=== PATIENT | male | born 1990 | race Caucasian/White ===

== ENCOUNTER 2020-10-09 21:15 | Emergency (ER) | payer MEDICAID, SELFPAY ==
[2020-10-09 21:16] VITALS: BP 123/68; PULSE 101; RESP 18; TEMP 37.1; O2SAT 100; BMI 25.0
--- NOTE | 2020-10-09 21:28 | ED.VIS.GEN ---
History of Present Illness Chief Complaint: Abscess Narrative: This patient is a 30-year-old male who presents with redness pain and swelling of his forehead. He noticed it this morning. No history of prior similar symptoms. No fevers nausea or vomiting. He is not diabetic. Past Medical History - Allergies and Home Meds Allergies/Adverse Reactions: Allergies No Known Allergies Allergy (Verified 10/09/20 21:18) Primary Care Physician: NOT,DEFINED [Primary Care Provider] - Past Medical History: - - Opiate dependence and abuse, on Suboxone Review of Systems All systems negative except as indicated General: Denies: Fever Eyes: Denies: Visual changes - bilaterally ENT: Denies: Bilateral ear pain Cardiovascular: Denies: Chest pain Gastrointestinal: Denies: Vomiting, Diarrhea Skin: Reports: Rash Physical Exam Vital Signs/Narrative: Vital Signs Temp Pulse Resp BP Pulse Ox 10/09/20 21:16 98.8 F 101 H 18 123/68 H 100 Inital Vital Signs reviewed: Yes General: Well nourished Head: - - Patient has a facial cellulitis in the center of his forehead with soft tissue swelling induration erythema no focal abscess no fluctuance Eyes: EOMI ENT: Moist mucous membranes Neck: Supple Cardiovascular: Regular rate Respiratory: No distress Skin: Normal color, - - Facial cellulitis as above Neurological: Alert Psychological: Normal affect Diagnostic/Tx/Re-eval - Medical Decision Making I did perform a [id number] soft tissue ultrasound of the area of cellulitis there is no focal fluid collection or abscess. Patient was given doxycycline, he was given first dose here and a prescription for the same. He understands return for new or worsening symptoms. Patient discharged. ED Disposition - Plan for ED Patient: Disposition: Home or Assisted Living Diagnosis: Facial cellulitis Instructions: ED Cellulitis, Facial Prescriptions: Doxycycline 100 mg PO BID #20 cap Prescription Printed Referrals: NOT,DEFINED [Primary Care Provider] -
[2020-10-09 21:30] VITALS: BP 123/68; PULSE 100; RESP 15; O2SAT 100
[2020-10-09] MEDS: Doxycycline 100 MG CAPSULE PO (21:41)
== END 2020-10-09 21:47 | disposition home or self-care (01) ==
LOC: ED 21:42
PROVIDERS: Emergency Provider Emergency Medicine
DX: L03.211 Cellulitis of face (principal)
CPT/HCPCS: 99283

== ENCOUNTER 2021-09-21 05:59 | Inpatient (IN) | payer MEDICAID, SELFPAY ==
[2021-09-21] VITALS (10 sets, daily range): BP systolic 103–127; BP diastolic 62–76; PULSE 110–129; RESP 15–18; TEMP 36.6–37.9; O2SAT 94–100; BMI 22.8; BMI 22.6
--- NOTE | 2021-09-21 06:26 | EKG12_ITS ---
Test Reason : CP Blood Pressure : / mmHG Vent. Rate : 116 BPM Atrial Rate : 116 BPM P-R Int : 124 ms QRS Dur : 074 ms QT Int : 318 ms P-R-T Axes : 064 061 048 degrees QTc Int : 442 ms Sinus tachycardia Otherwise normal ECG Confirmed by SHELLEY MIRZA, ZACARIAS ([id number]), cooking appliance repair technician CAREY BOONE ([id number]) on 09/25/2021 9:28:54 AM Referred By: NEGAR Confirmed By:NAYELI ROSA MD
--- NOTE | 2021-09-21 06:28 | EX.ED.DYSGE1 ---
HPI <Dr. Hector Harris MD - Last Filed: 09/21/21 07:49> History of Present Illness Chief Complaint: General Illness Narrative Narrative: Patient presents saying that between 3 and 4 weeks ago he was diagnosed with Covid, and since around that time he has had tender swollen areas on both forearms. At least one of them, the left one, was a methamphetamine injection site. He cannot remember about the others. Several days he accidentally bumped one of them on the right forearm, and it became worse and spread to the elbow area where now he has other nodules that are swollen, and his whole proximal forearm is swollen and extremely tender. He is having chills, unknown if he has fevers or not. He feels malaise. In the last several days, he feels like all of the tender swollen areas on both of his forearms have worsened, and he has developed pleuritic left lower chest pain and some mild shortness of breath, his cough is unchanged and has persisted since Covid. He denies any leg pain or swelling. No history of DVT or PE that he knows of. PFSH <Dr. Hector Harris MD - Last Filed: 09/21/21 07:49> [facility] Medical History (Updated 09/21/21 @ 10:[address] Carlos Chahal DO) COVID-19 Drug abuse and dependence Hepatitis C Home Medications NK 09/21/21 [History Last Taken Unknown] Allergy/AdvReac Type Severity Reaction Status Date / Time No Known Allergies Allergy Verified 10/09/20 21:18 Social History Smoking Status: Current every day smoker tobacco type: cigarettes ROS <Dr. Hector Harris MD - Last Filed: 09/21/21 07:49> ROS ED Constitutional Constitutional ED: Reports body ache(s), chills, fever(s) and subjective Eyes Eyes: Denies change in vision or diplopia ENT ENT ED: Denies rhinorrhea or sore throat Cardiovascular Cardiovascular: Reports as per HPI and chest pain; Denies palpitations Respiratory/Chest Respiratory/Chest: Reports cough and dyspnea Gastrointestinal Gastrointestinal: Denies abdominal pain, diarrhea, nausea or vomiting Genitourinary Genitourinary ED: Denies dysuria or hematuria Musculoskeletal Musculoskeletal: Reports extremity pain; Denies back pain or neck pain Integumentary Reports abscess; Denies rash Neurologic Neurologic: Denies headache(s), paresthesias or weakness Psychiatric Psychiatric: Denies anxiety or suicidal thoughts EXAM <Dr. Hector Harris MD - Last Filed: 09/21/21 07:49> Physical Exam Const Vital Signs: 09/21/21 06:00 09/21/21 06:07 09/21/21 07:06 Temperature 99.4 F H 99.4 F H 98.7 F Temperature Source Temporal Temporal Temporal Pulse Rate 125 H 119 H 115 H Respiratory Rate 17 18 15 Blood Pressure 127/75 H 127/75 H 118/76 Blood Pressure Mean 92 92 90 Pulse Ox 99 99 95 Oxygen Delivery Method Room Air Room Air Room Air 09/21/21 07:11 09/21/21 08:01 Temperature 98.7 F 98 F Temperature Source Temporal Temporal Pulse Rate 111 H 115 H Respiratory Rate 17 16 Blood Pressure 111/76 118/71 Blood Pressure Mean 87 86 Pulse Ox 98 98 Oxygen Delivery Method Room Air Room Air Positive well nourished and well developed General Appearance ED: well developed and NAD HEENT Reports moist mucous membranes normocephalic and atraumatic Eyes PERRL and EOMs intact bilaterally Neck full ROM and supple Chest Wall inspection of chest normal and palpation of chest normal Chest Narrative: No axillary lymphadenopathy Resp normal respiratory effort and clear to auscultation bilaterally Cardio regular rate, regular rhythm and no murmurs Rate: tachycardic GI non-tender and non-distended Auscultation: normoactive bowel sounds Palpation: soft Back/Spine no CVA tenderness General Back: other FROM Extremity normal to inspection Extremity Narrative: Patient has a single pointing abscess on his volar left proximal forearm just distal to the antecubital fossa without any apparent spread. The proximal right forearm is extremely swollen, and on the ulnar aspect, there are 3 nodular areas that appear consistent with abscesses with surrounding cellulitis that goes toward the olecranon process but not proximal to that. He is able to flex and extend his wrist without difficulty, little more difficult to do so with his elbow. All compartments are soft and nondistended without severe tenderness. Legs are more benign appearing without any edema, or calf tenderness. General Extremety ED: Yes tenderness; Negative for edema or pulses abnormal General Extremity: Negative for edema or pulses abnormal Neuro oriented x3, CN's II-XII intact bilaterally and no sensory deficits noted Sensorium / Orientation: awake and alert Motor Exam: strength 5/5 throughout Skin Skin Narrative: Several abscess-appearing lesions on both forearms see above. Cellulitis appears to be surrounding all of these along the ulnar aspect of the right proximal forearm. <Dr. Carlos Chahal DO - Last Filed: 09/21/21 10:07> Physical Exam Const Vital Signs: 09/21/21 06:00 09/21/21 06:07 09/21/21 07:06 Temperature 99.4 F H 99.4 F H 98.7 F Temperature Source Temporal Temporal Temporal Pulse Rate 125 H 119 H 115 H Respiratory Rate 17 18 15 Blood Pressure 127/75 H 127/75 H 118/76 Blood Pressure Mean 92 92 90 Pulse Ox 99 99 95 Oxygen Delivery Method Room Air Room Air Room Air 09/21/21 07:11 09/21/21 08:01 Temperature 98.7 F 98 F Temperature Source Temporal Temporal Pulse Rate 111 H 115 H Respiratory Rate 17 16 Blood Pressure 111/76 118/71 Blood Pressure Mean 87 86 Pulse Ox 98 98 Oxygen Delivery Method Room Air Room Air MDM <Dr. Hector Harris MD - Last Filed: 09/21/21 07:49> [facility] MDM Narrative Medical decision making narrative: Septic work-up obtained, he will also need CT angiography of the chest to evaluate for septic pulmonary emboli given IV drug use and abscesses associated with this, and I think a CT of the forearm. He has what appears to be 3 different discrete abscesses, and his forearm in the musculature compartment is extremely edematous/swollen, I think he needs imaging to see the extent of infection there. He does not want I&D of anything without being put to sleep. Lab Data Labs: Laboratory Results - last 24 hr 09/21/21 09/21/21 09/21/21 06:55 06:55 06:55 WBC 7.5 RBC 4.09 L Hgb 12.0 L Hct 33.9 L MCV 82.9 MCH 29.3 MCHC 35.4 RDW Std Deviation 49.6 H RDW Coeff of Dennis 16.4 H Plt Count 110 L MPV 12.7 H Immature Gran % (Auto) 0.900 Neut % (Auto) 71.1 H Lymph % (Auto) 22.2 Roosevelt % (Auto) 4.8 Eos % (Auto) 0.5 Baso % (Auto) 0.5 Absolute Neuts (auto) 5.3 Absolute Lymphs (auto) 1.67 Nucleated RBC % 0 Reactive Lymphocytes RARE PT 13.9 INR 1.1 APTT 35.0 D-Dimer Quant (PE/DVT) 3.07 H* Sodium 133 L Potassium 3.7 Chloride 99 Carbon Dioxide 27.0 Anion Gap 7 BUN 11 Creatinine 0.83 Estim Creat Clear Calc 141.69 Est GFR (MDRD) Af Amer 138 Est GFR (MDRD) Non-Af 114 BUN/Creatinine Ratio 13.3 Glucose 85 Lactic Acid Calcium 8.2 L Total Creatine Kinase 189 Troponin I High Sens 4 Urine Color Urine Clarity Urine pH Ur Specific Eagar Urine Protein Urine Glucose (UA) Urine Ketones Urine Occult Blood Urine Nitrite Urine Bilirubin Urine Urobilinogen Ur Leukocyte Esterase Urine RBC Urine WBC Ur Squamous Epith Cells Ur Transition Epith Cell Urine Bacteria Urine Mucus 09/21/21 09/21/21 06:55 06:55 WBC RBC Hgb Hct MCV MCH MCHC RDW Std Deviation RDW Coeff of Dennis Plt Count MPV Immature Gran % (Auto) Neut % (Auto) Lymph % (Auto) Roosevelt % (Auto) Eos % (Auto) Baso % (Auto) Absolute Neuts (auto) Absolute Lymphs (auto) Nucleated RBC % Reactive Lymphocytes PT INR APTT D-Dimer Quant (PE/DVT) Sodium Potassium Chloride Carbon Dioxide Anion Gap BUN Creatinine Estim Creat Clear Calc Est GFR (MDRD) Af Amer Est GFR (MDRD) Non-Af BUN/Creatinine Ratio Glucose Lactic Acid 0.6 Calcium Total Creatine Kinase Troponin I High Sens Urine Color Yellow Urine Clarity Clear Urine pH 6.0 Ur Specific Eagar 1.025 Urine Protein 100 H Urine Glucose (UA) Normal Urine Ketones 5 H Urine Occult Blood 10 H Urine Nitrite Positive H Urine Bilirubin 1 H Urine Urobilinogen 8 H Ur Leukocyte Esterase 100 H Urine RBC 0-5 SEEN Urine WBC 10-25 SEEN Ur Squamous Epith Cells 0-5 SEEN Ur Transition Epith Cell 0-5 SEEN Urine Bacteria 3+ Urine Mucus 2+ Radiography Diagnostic Testing: Clinical Impression(s) from Imaging Studies Chest CTA 09/21/21 06:35 IMPRESSION: Normal CTA chest examination, without a demonstrated pulmonary embolism or arterial dissection. Electronically Signed: Berny Hernandez MD at 8:58 EST , Service support , Upper Extremity CT 09/21/21 06:35 IMPRESSION: 5 cm x 2.9 cm x 8.9 cm convex fluid collection with thickened wall in the soft tissues overlying the proximal and midportion of the radius as described. There is evidence of overlying soft tissue swelling as well as skin thickening. No bony destruction is seen. No radiopaque foreign bodies present. Electronically Signed: Berny Hernandez MD at 8:55 EST , Service support , EKG Initial EKG: Attestation: I personally reviewed and interpreted this EKG as follows: Interpretation: No Acute Injury Pattern and Sinus Tachycardia Comments: nml except for ST <Dr. Carlos Chahal, DO - Last Filed: 09/21/21 10:07> MDM MDM Narrative Medical decision making narrative: The patient CT was read by me. This demonstrates a large abscess on the right forearm. No emboli seen on chest CTA. Case was discussed with Dr. Fischer from plastic surgery as well as the hospitalist. Plan is admission. Patient is agreeable to this plan. Lab Data Attestation: I reviewed the patient's lab results. Labs: Laboratory Results - last 24 hr 09/21/21 09/21/21 09/21/21 06:55 06:55 06:55 WBC 7.5 RBC 4.09 L Hgb 12.0 L Hct 33.9 L MCV 82.9 MCH 29.3 MCHC 35.4 RDW Std Deviation 49.6 H RDW Coeff of Dennis 16.4 H Plt Count 110 L MPV 12.7 H Immature Gran % (Auto) 0.900 Neut % (Auto) 71.1 H Lymph % (Auto) 22.2 Roosevelt % (Auto) 4.8 Eos % (Auto) 0.5 Baso % (Auto) 0.5 Absolute Neuts (auto) 5.3 Absolute Lymphs (auto) 1.67 Nucleated RBC % 0 Reactive Lymphocytes RARE PT 13.9 INR 1.1 APTT 35.0 D-Dimer Quant (PE/DVT) 3.07 H* Sodium 133 L Potassium 3.7 Chloride 99 Carbon Dioxide 27.0 Anion Gap 7 BUN 11 Creatinine 0.83 Estim Creat Clear Calc 141.69 Est GFR (MDRD) Af Amer 138 Est GFR (MDRD) Non-Af 114 BUN/Creatinine Ratio 13.3 Glucose 85 Lactic Acid Calcium 8.2 L Total Creatine Kinase 189 Troponin I High Sens 4 Urine Color Urine Clarity Urine pH Ur Specific Eagar Urine Protein Urine Glucose (UA) Urine Ketones Urine Occult Blood Urine Nitrite Urine Bilirubin Urine Urobilinogen Ur Leukocyte Esterase Urine RBC Urine WBC Ur Squamous Epith Cells Ur Transition Epith Cell Urine Bacteria Urine Mucus 09/21/21 09/21/21 06:55 06:55 WBC RBC Hgb Hct MCV MCH MCHC RDW Std Deviation RDW Coeff of Dennis Plt Count MPV Immature Gran % (Auto) Neut % (Auto) Lymph % (Auto) Roosevelt % (Auto) Eos % (Auto) Baso % (Auto) Absolute Neuts (auto) Absolute Lymphs (auto) Nucleated RBC % Reactive Lymphocytes PT INR APTT D-Dimer Quant (PE/DVT) Sodium Potassium Chloride Carbon Dioxide Anion Gap BUN Creatinine Estim Creat Clear Calc Est GFR (MDRD) Af Amer Est GFR (MDRD) Non-Af BUN/Creatinine Ratio Glucose Lactic Acid 0.6 Calcium Total Creatine Kinase Troponin I High Sens Urine Color Yellow Urine Clarity Clear Urine pH 6.0 Ur Specific Eagar 1.025 Urine Protein 100 H Urine Glucose (UA) Normal Urine Ketones 5 H Urine Occult Blood 10 H Urine Nitrite Positive H Urine Bilirubin 1 H Urine Urobilinogen 8 H Ur Leukocyte Esterase 100 H Urine RBC 0-5 SEEN Urine WBC 10-25 SEEN Ur Squamous Epith Cells 0-5 SEEN Ur Transition Epith Cell 0-5 SEEN Urine Bacteria 3+ Urine Mucus 2+ Radiography Diagnostic Testing: Clinical Impression(s) from Imaging Studies Chest CTA 09/21/21 06:35 IMPRESSION: Normal CTA chest examination, without a demonstrated pulmonary embolism or arterial dissection. Electronically Signed: Berny Hernandez MD at 8:58 EST , Service support , Upper Extremity CT 09/21/21 06:35 IMPRESSION: 5 cm x 2.9 cm x 8.9 cm convex fluid collection with thickened wall in the soft tissues overlying the proximal and midportion of the radius as described. There is evidence of overlying soft tissue swelling as well as skin thickening. No bony destruction is seen. No radiopaque foreign bodies present. Electronically Signed: Berny Hernandez MD at 8:55 EST , Service support , Discharge Plan Dx/Rx/DC Orders Clinical Impression: Abscess of forearm, right, Abscess of left elbow, Acute UTI Disposition Disposition: Acute Care [facility]
--- NOTE | 2021-09-21 06:35 | CT_ITS ---
STUDY: CT SCAN UPPER EXTREMITY RIGHT REASON FOR EXAM: Male, 31 years old. Pain and infection of the forearm. RADIATION DOSAGE (If Supplied By Facility): CTDIvol = ( 24.58 ) mGy, DLP = ( 800.30 ) mGycm. Individualized dose optimization techniques were used for this CT.? TECHNIQUE: Multiple axial tomographic images were obtained from the level of the elbow joint down to the wrist joint following intravenous contrast administration. COMPARISON: None. FINDINGS: There is a 5 cm by 2.9 cm x 8.9 cm complex fluid collection with thickened arreguin in the soft tissues overlying the proximal and midportion of the radius. There is evidence of overlying soft tissue swelling and skin thickening. This is suggestive of a abscess collection and overlying cellulitis. No radiopaque foreign body is seen. The bony structures are unremarkable. CT/Extremity Upper WITH Contrast IMPRESSION: 5 cm x 2.9 cm x 8.9 cm convex fluid collection with thickened wall in the soft tissues overlying the proximal and midportion of the radius as described. There is evidence of overlying soft tissue swelling as well as skin thickening. No bony destruction is seen. No radiopaque foreign bodies present. Electronically Signed: Berny Hernandez MD at 8:55 EST , Service support ,
--- NOTE | 2021-09-21 06:35 | CT_ITS ---
STUDY: CTA CHEST REASON FOR EXAM: Male, 31 years old. Fever, pleuritic chest pain, elevated d-dimer RADIATION DOSAGE (If Supplied By Facility): CTDIvol = ( 10.17 ) mGy, DLP = ( 410.010 ) mGycm TECHNIQUE: The examination was performed with the intravenous administration of IV 100mL [id number]-[id number]. Post-processing of the angiographic images was performed, with multiplanar reformation and 3D reconstruction. Individualized dose optimization techniques were used for this CT. COMPARISON: None. FINDINGS: Normal enhancement of the main pulmonary artery and right and left pulmonary arteries. Normal enhancement of the bilateral peripheral pulmonary arteries. There is no demonstrated pulmonary embolism. Normal thoracic aorta and visualized great vessels. There is no demonstrated aortic dissection. Normal heart and pericardium. Normal mediastinum. Normal hilar regions. Normal visualized trachea and bronchi. The lungs are well expanded. Normal pulmonary parenchyma. Normal pleura. Normal chest wall structures. Normal osseous structures. There is evidence of splenomegaly. There is evidence of a tiny layering gallstones along the dependent portion of the gallbladder lumen. CT/CTA Chest W/WO Contrast IMPRESSION: Normal CTA chest examination, without a demonstrated pulmonary embolism or arterial dissection. Electronically Signed: Berny Hernandez MD at 8:58 EST , Service support ,
[2021-09-21 07:03] LABS: Color, Urine Yellow (Yellow); Glucose, Dipstick Normal (Normal); Ketone-Dipstick 5 mg/dl (Negative); Leukocyte Esterase-Dipstick 100 /ul (Negative); Nitrite-Dipstick Positive (Negative); Occult Blood-Urine 10 /ul (Negative); Protein-Dipstick 100 mg/dl (Negative); Specific Gravity, Urine 1.025 (1.002-1.030); Urine Clarity Clear (Clear); Urine Urobilinogen 8 mg/dl (Normal)
[2021-09-21] MEDS: 0.9% Normal Saline 1,000 ML 999 ML IV (07:03)
[2021-09-21 07:19] LABS: Urine Bilirubin Dipstick 1 mg/dL (Negative)
[2021-09-21 07:20] LABS: Bacteria 3+ /hpf (None Seen); Red Blood Cells-Urine 0-5 SEEN /hpf (0-5); White Blood Cells 10-25 SEEN /hpf (0-5)
[2021-09-21 07:21] LABS: Mucous, Urine 2+ /hpf (<or=2+); Squamous Epithelial Cells - UA 0-5 SEEN /hpf (0-5); Transitional Epithelial - Ur 0-5 SEEN /hpf (0-5)
[2021-09-21 07:23] LABS: Absolute Lymphocyte Count 1.67 X10^3/uL (0.83-4.51); Absolute Neutrophil Count 5.3 X10^3/uL (2.0-7.7); Basophil# 0.04 X10^3/uL; Basophil% 0.5 % (0-1); Eosinophil# 0.04 X10^3/uL; Eosinophils% 0.5 % (0-5); Hematocrit 33.9 % (40-54); Lymphocyte # 1.67 X10^3/ul (0.83-4.51); Lymphocyte % 22.2 % (19-41); Mean Corp Hgb Conc 35.4 g/dL (32-36); Mean Corpuscular Hgb 29.3 pg (27.0-32.0); Mean Corpuscular Volume 82.9 fL (80-94); Mean Platelet Vol. 12.7 fl (6.2-12.0); Monocyte# 0.36 X10^3/uL; Monocyte% 4.8 % (0-10); NRBC Flagged by Analyzer 0 % (0-5); Neutrophil # 5.34 X10^3/uL (2.7-7.7); Neutrophil % 71.1 % (47-70); POSITIVE MORPHOLOGY YES; Platelet Count 110 K/mm3 (150-450); RBC Distribution Width CV 16.4 % (11.6-14.6); RBC Distribution Width SD 49.6 fl (35.1-43.9); Red Blood Count 4.09 M/mm3 (4.6-6.2); White Blood Count 7.5 K/mm3 (4.4-11.0)
[2021-09-21 07:24] LABS: Differential Indicated SCAN CRITERIA MET
[2021-09-21 07:37] LABS: International Normalized Ratio 1.1; Prothrombin Time (Protime)PT. 13.9 SECONDS (11.7-14.9)
[2021-09-21 07:41] LABS: Anion Gap 7 (5-15); BUN 11 mg/dL (7-18); BUN/Creat Ratio 13.3 RATIO (10-20); CPK Total, Creatine Kinase 189 U/L (39-308); Calcium,Total 8.2 mg/dL (8.5-10.1); Chloride 99 mmol/L (98-107); Creatinine, Serum 0.83 mg/dL (0.70-1.30); EST Glomerular Filtration Rate 114 mL/min (>60); Est Glom Filt Rate - Afr Amer 138 mL/min (>60); Estimated Creatinine Clearance 141.69 ml/min; Glucose 85 mg/dL (74-106); Potassium 3.7 mmol/L (3.5-5.1); Sodium Level 133 mmol/L (136-145); Troponin-I HS 4 pg/mL (3.0-78.0)
[2021-09-21 07:52] LABS: Lactic Acid 0.6 mmol/L (0.4-1.9)
[2021-09-21 07:55] LABS: D-Dimer Quantitative (DVT/PE) 3.07 FEU/ug/m (0.27-0.49)
--- NOTE | 2021-09-21 08:00 | ED.RN ---
d-dimer 3.07. dr goodwin
[2021-09-21 08:42] LABS: Reactive Lymphocyte RARE
--- NOTE | 2021-09-21 10:15 | NURSING ---
DR CHARLETTE MACIAS
--- NOTE | 2021-09-21 10:20 | NURSING ---
MED SURG KITTOE RT FOREARM ABSCESS
--- NOTE | 2021-09-21 10:23 | PCM.HP.STD ---
HPI - General General Date of Admission: 09/21/21 Date of Service: 09/21/21 Chief Complaint: Bilateral upper extremity swelling HPI Narrative MEME CORNEJO, is a 31 M with past medical history segment for polysubstance abuse including methamphetamine use who presents with swelling involving both upper extremities. Patient admitted to meth injection in both upper extremities. He had apparently been diagnosed with COVID-19 but did not require oxygen. His test apparently came back positive on 08/27/2021 and is currently out of isolation. In addition to the swelling involving both upper extremity he did notice significant pain and redness. Presented to the emergency department diagnosis of cellulitis and abscesses involving both upper extremities made antibiotics initiated per protocol. The plastic surgeon on-call Dr. Ficsher notified. Patient admitted to regular nursing floor for further management [facility] Medical History COVID-19 Drug abuse and dependence Hepatitis C no medical history Home Medications NK 09/21/21 [History Last Taken Unknown] Allergy/AdvReac Type Severity Reaction Status Date / Time No Known Allergies Allergy Verified 10/09/20 21:18 Family History Mother Hypertension Social History Smoking Status: Current every day smoker tobacco type: cigarettes ROS ROS Narrative GENERAL: fever, chills, night sweats, HEENT: denies headache, sinus congestion, or drainage, RESPIRATORY: denies cough, sputum production, CARDIAC: denies chest pain, palpitations, orthopnea, PND GASTROINTESTINAL: denies abdominal pain, nausea, vomiting, melena, GENITOURINARY: denies dysuria, urgency, frequency, heamaturia EXTREMITY: Swelling of both forearms with erythema MUSCULOSKELETAL: Swelling and pain involving both forearms NEUROLOGIC: denies focal numbness, weakness, tingling HEMATOLOGIC: denies easy bruising and/or hemorrhage INTEGUMENT: denies rashes PSYCHIATRIC: denies suicidal or homicidal ideation Vital Signs Vital Signs Vital Signs: 09/21/21 06:00 09/21/21 06:07 09/21/21 07:06 Temperature 99.4 F H 99.4 F H 98.7 F Temperature Source Temporal Temporal Temporal Pulse Rate 125 H 119 H 115 H Respiratory Rate 17 18 15 Blood Pressure 127/75 H 127/75 H 118/76 Blood Pressure Mean 92 92 90 Pulse Ox 99 99 95 Oxygen Delivery Method Room Air Room Air Room Air 09/21/21 07:11 09/21/21 08:01 Temperature 98.7 F 98 F Temperature Source Temporal Temporal Pulse Rate 111 H 115 H Respiratory Rate 17 16 Blood Pressure 111/76 118/71 Blood Pressure Mean 87 86 Pulse Ox 98 98 Oxygen Delivery Method Room Air Room Air Weight Weight: 78.4 kg Body Mass Index (BMI) 22.8 Physical Exam Narrative GENERAL: cooperative HEENT: Atraumatic; EYES; Anicteric, Normal Conjunctiva NECK; supple, normal thyroid, RESPIRATORY: Diminished to auscultation CARDIOVASCULAR: Regular S1 S2, GI: soft, normoactive bowel sounds, : No Renal angle tenderness; EXTREMITIES: No edema, no clubbing, MUSCULOSKELETAL: Abscesses involving upper extremities 3 on the left right on the palmar surfaces of both hands NEURO: Awake; no lateralizing signs. SKIN: No Rash PSYCH; Flat affect Results Lab / Micro Data Result Diagrams: 09/21/21 06:55 09/21/21 06:55 Labs: Laboratory Results - last 24 hr 09/21/21 06:55: WBC 7.5, RBC 4.09 L, Hgb 12.0 L, Hct 33.9 L, MCV 82.9, MCH 29.3, MCHC 35.4, RDW Std Deviation 49.6 H, RDW Coeff of Dennis 16.4 H, Plt Count 110 L, MPV 12.7 H, Immature Gran % (Auto) 0.900, Neut % (Auto) 71.1 H, Lymph % (Auto) 22.2, [place] % (Auto) 4.8, Eos % (Auto) 0.5, Baso % (Auto) 0.5, Absolute Neuts (auto) 5.3, Absolute Lymphs (auto) 1.67, Nucleated RBC % 0, Reactive Lymphocytes RARE 09/21/21 06:55: PT 13.9, INR 1.1, APTT 35.0, D-Dimer Quant (PE/DVT) 3.07 H* 09/21/21 06:55: Sodium 133 L, Potassium 3.7, Chloride 99, Carbon Dioxide 27.0, Anion Gap 7, BUN 11, Creatinine 0.83, Estim Creat Clear Calc 141.69, Est GFR (MDRD) Af Amer 138, Est GFR (MDRD) Non-Af 114, BUN/Creatinine Ratio 13.3, Glucose 85, Calcium 8.2 L, Total Creatine Kinase 189, Troponin I High Sens 4 09/21/21 06:55: Lactic Acid 0.6 09/21/21 06:55: Urine Color Yellow, Urine Clarity Clear, Urine pH 6.0, Ur Specific [place] 1.025, Urine Protein 100 H, Urine Glucose (UA) Normal, Urine Ketones 5 H, Urine Occult Blood 10 H, Urine Nitrite Positive H, Urine Bilirubin 1 H, Urine Urobilinogen 8 H, Ur Leukocyte Esterase 100 H, Urine RBC 0-5 SEEN, Urine WBC 10-25 SEEN, Ur Squamous Epith Cells 0-5 SEEN, Ur Transition Epith Cell 0-5 SEEN, Urine Bacteria 3+, Urine Mucus 2+ Micro: Microbiology 09/21/21 06:49 Nasal Secretion SARS-CoV-2 Antigen (Rapid) - Final Radiology Impression Chest CTA 09/21/21 06:35 IMPRESSION: Normal CTA chest examination, without a demonstrated pulmonary embolism or arterial dissection. Electronically Signed: Berny Hernandez MD at 8:58 EST , Service support , Upper Extremity CT 09/21/21 06:35 IMPRESSION: 5 cm x 2.9 cm x 8.9 cm convex fluid collection with thickened wall in the soft tissues overlying the proximal and midportion of the radius as described. There is evidence of overlying soft tissue swelling as well as skin thickening. No bony destruction is seen. No radiopaque foreign bodies present. Electronically Signed: Berny Hernandez MD at 8:55 EST , Service support , Assessment & Plan Assessment/Plan (1) Abscess of left elbow: (2) Abscess of forearm, right: (3) Acute UTI: PLAN: Patient is a 31-year-old gentleman with history of polysubstance abuse presenting with fever and chills as well as nodular swellings involving both forearms 1. Cellulitis and abscesses involving both forearms ?In a patient with IVDA. Patient has been admitted to regular nursing floor broad-spectrum antibiotic therapy with Zosyn clindamycin and vancomycin initiated consult placed to Dr. Hudson with plastic surgery from the ED 2. Acute cystitis ?Patient is on antibiotics 3. Polysubstance abuse ?Patient was counseled on cessation 4. Recent COVID-19 infection ?Currently stable not requiring any supplemental oxygen 5. Elevated D-dimer ?Related to recent COVID-[address] of the chest obtained was negative for PE 6. Tobacco dependence - Counseled on cessation, offered nicotine patch for tobacco cravings 7. History of hep C ?Patient to follow-up with PCP for subsequent care 8. DVT prophylaxis - On enoxaparin Charges/Coding Visit Charges Inpatient E&M: 41486 Init Hosp L3
--- NOTE | 2021-09-21 13:21 | PCM.RX.CS ---
Consult Pharmacy has been consulted to manage selected antiobiotic: Vancomycin Type of Consult: New start Suspected Infection: Skin/Soft tissue Labs: Sodium 133 mmol/L (136-145) L 09/21/21 06:55 Potassium 3.7 mmol/L (3.5-5.1) 09/21/21 06:55 Chloride 99 mmol/L (98-107) 09/21/21 06:55 Carbon Dioxide 27.0 mmol/L (21.0-32.0) 09/21/21 06:55 Anion Gap 7 (5-15) 09/21/21 06:55 BUN 11 mg/dL (7-18) 09/21/21 06:55 Creatinine 0.83 mg/dL (0.70-1.30) 09/21/21 06:55 Est GFR (MDRD) Af Amer 138 mL/min (>60) 09/21/21 06:55 Est GFR (MDRD) Non-Af 114 mL/min (>60) 09/21/21 06:55 BUN/Creatinine Ratio 13.3 RATIO (10-20) 09/21/21 06:55 Glucose 85 mg/dL (74-106) 09/21/21 06:55 Microbiology: Microbiology 09/21/21 06:49 Nasal Secretion SARS-CoV-2 Antigen (Rapid) - Final Goal Trough: 10-15 mcg/mL Pharmacy Plan for Drug Dosing: NEW START IV VANCOMYCIN Consulting Physician: Roxanna Indication: cellulitis Goal Trough: 10-15 SrCr: 0.83 CrCl: 140mls/min Comments: pt received a x1 dose of 1250mg in the ER on 09/21/21 at 0705 Vancomcyin Dose: based on pts weight and renal function, recommend an intital dose of 1250mg q12h. trough before the 4th dose Pending Level: 09/22/21 at 1830 Pharmacy Service will continue to monitor and adjust dosing as required. Follow-Up Labs: Trough Vancomycin - 09/22/21 at 1830
[2021-09-21] MEDS: 0.9% Normal Saline 1,000 ML 200 ML IV ×2 (13:28→19:20)
--- NOTE | 2021-09-21 13:34 | WOUNDNOTE ---
wound photo: right forearm
--- NOTE | 2021-09-21 13:35 | WOUNDNOTE ---
wound photo: left forearm
--- NOTE | 2021-09-21 16:48 | PCS.PANDOC ---
PANDEMIC DOCUMENTATION INITIATED: Date: 06/05/2021 Time: 190
[2021-09-21] MEDS: Acetaminophen 325 MG Tablet 650 MG PO (20:14)
[2021-09-21] MEDS: oxyCODONE 5 MG Tablet PO (20:14)
--- NOTE | 2021-09-21 22:45 | CON.PCM_ITS ---
Assessment & Plan Assessment/Plan (1) Abscess of forearm, right: (2) Abscess of forearm, left: (3) History of intravenous drug abuse: (4) Methamphetamine abuse: (5) COVID-19: (6) Smoker: (7) Hepatitis C: PLAN: Patient has new onset abscesses right volar ulnar forearm and right volar radial forearm. He stated he had a relapse and had some meth that he used with the IV route, and the areas that were used for this purpose are now infected. He is on broad spectrum IV antibiotics (Zosyn, Clindamycin, and Vancomycin) that he should continue. Patient needs operative intervention to drain these abscesses. Will schedule the surgery tomorrow under general anesthesia. Will leave the wounds open and proceed with Silver dressing changes daily or Dakin's dressing changes. After discharge, he will [facility] to continue to monitor the progress if his wounds. If there is a plateau in the healing process, can proceed with delayed closure with skin grafting. Tissue from the surgery will be sent to Pathology for analysis to rule out carcinoma and will be sent to Microbiology for culture. A positive culture will necessitate continuation of IV antibiotics. Anticipate increased metabolic demands from the infection and subsequent wound care. Will check a Prealbumin and encourage nutritional supplementation with protein to help the healing process. Patient was informed of the risks and complications of the procedure including alternatives to surgery. These were discussed with the patient personally. Patient voices understanding and wishes to proceed. Some of the risks and complications that were discussed included but were not inclusive of failure to diagnose including symptom relief, pain, infection, numbness, stiffness, loss of digit, RSD (CRPS), need for further surgery, co ntracture, and wound healing problems. Patient voices understanding and wishes to proceed. We discussed the current risks associated with COVID-19. While it is understood that there is a community spread of COVID-19, the risk of shayan COVID-19 while at [facility]) is very low; however, the risk cannot be completely mitigated because of the community spread of the disease. We discussed in detail the risk of exposure to and/or potential harm posed by the COVID-19 virus with having a surgery/procedure at this time versus the risk of delaying the surgery/procedure. It is not possible to know either the risk of delaying the surgery or procedure or chance of getting an infection with perfect accuracy, but a joint decision was made to proceed at this time with the sche duled surgery/procedure as indicated on the consent form. Patient was notified that we will need to comply with any screening or testing [facility] wishes to perform or that surgery may be delayed for any positive results. Procedure Criteria Procedure Type:?Elective COVID Risk Discussion: The surgeon/proceduralist and patient have discussed in detail the risk of exposure to and/or potential harm posed by the COVID-19 virus with having a s urgery/procedure at this time versus the risk of delaying the surgery/procedure.? It is not possible to know either the risk of delaying the surgery or procedure or chance of getting an infection with perfect accuracy, but a joint decision was made between the patient and the surgeon/proceduralist to proceed at this time with the scheduled surgery/procedure as indicated on the consent form. HPI Consult Data Date of Consult: 09/21/21 PCP / Referring MD: Dr. Fidel Mcknight MD HPI Narrative Reason for Consultation: IV drug abuse abscesses left forearm and right forearm. HPI Narrative: MEME CORNEJO, is a 31 M who presents with painful masses on both forearms that have increased in size, redness, and pain in the last couple of days. He has a history of IV drug use. He states he has been clean for 10 years and recently had some methamphetamine injections in both upper extremities which led to his present symptoms. He states he was diagnosed with COVID-19 last month but did not require oxygen. His test apparently came back positive on 08/27/2021 and is currently out of isolation. In the ED, his WBC was 7.5. His Lactate was 0.6. His D-dimer was 3.07. He was started on IV antibiotics with Zosyn, Clindamycin, and Vancomycin. CT showed 5 cm x 2.9 cm x 8.9 cm convex fluid collection with thickened wall in the soft tissues overlying the proximal and midportion of the radius as described. There is evidence of overlying soft tissue swelling as well as skin thickening. No bony destruction is seen. No radiopaque foreign bodies present. Because his D-dimer was elevated with an associated positive COVID test, a CTA of the chest was done. It showed normal CTA chest examination, without a demonstrated pulmonary embolism or arterial dissection. I was asked to evaluate this patient for surgical options for treatment. [facility] Medical History (Updated 10/02/21 @ 08:[address] Gabriel Fischer MD) Abscess of forearm, left Abscess of forearm, right Anxiety Broken teeth COVID-19 Drug abuse and dependence GI bleed Hepatitis C History of intravenous drug abuse Methamphetamine abuse Smoker Substance abuse Medical History no medical history Home Medications cephalexin 500 mg PO TID 7 Days #21 cap 09/26/21 [Rx Last Taken Unknown] oxycodone 5 mg PO Q4H PRN PRN 5 Days #20 tab 09/26/21 [Rx Last Taken Unknown] Allergy/AdvReac Type Severity Reaction Status Date / Time No Known Allergies Allergy Verified 10/09/20 21:18 Family History Mother Hypertension Social History Smoking Status: Current every day smoker tobacco type: cigarettes ROS ROS Narrative General - Denies fever, fatigue, and weight loss. Has IV drug use history with Methamphetamine. Early August he was tested positive for COVID. Eyes - Denies cataracts and glaucoma. ENT - Denies nasal congestion and sore throat. Endocrine - Denies excessive thirst and urination. Has hepatitis C. Skin - Denies suspicious lesions and skin cancer. Has abscesses volar ulnar aspect proximal right forearm and volar radial aspect proximal left forearm. Musculoskeletal - Denies joint pain, joint stiffness, weakness of muscles and joints, back pain, and arthritis. Neuro - Denies headaches. Cardiovascular - Denies chest pain, fatigue, and shortness of breath with exertion. Psych - Denies anxiety and depression. Respiratory - Denies chronic cough and shortness of breath. Patient is a smoker. Gastrointestinal - Denies nausea, vomiting, diarrhea, and constipation. Hematologic - Denies abnormal bruising and bleeding. Genitourinary - Denies hematuria and urinary frequency. Physical Exam Narrative General - Alert and Oriented HEENT - PERRL. EOMI. Throat is clear. Neck - Supple and nontender. No cervical adenopathy. Lungs - Clear to auscultation. Heart - Regular rate and rhythm. Abdomen - Soft and nondistended. Extremities - Has limited range of motion secondary to pain and swelling. No axillary adenopathy. Radial pulses are palpable. No inguinal adenopathy. Dorsalis pedis pulses are palpable. On the right forearm on the volar ulnar aspect are three abscesses. There is fluctuance. There is surrounding redness. Tender to palpation. Measures 16 x 5 cm. On the left forearm on the volar radial aspect is an abscess, It is fluctuant. There is surrounding redness. Tender to palpation. Measures 6 x 3 cm. Difficulty with pronation and supination secondary to pain and swelling. Has difficulty with flexion and extension of his fingers secondary to pain and swelling. Has some paresthesias fingers of both hands secondary to pain and swelling. Neuro - CN II-XII grossly intact. Psych - Normal mood and affect. Lab / Micro Data Attestation: I reviewed the patient's lab results. Result Diagrams: 09/25/21 14:50 09/25/21 14:50 Labs: Laboratory Results - last 24 hr 09/21/21 06:55: WBC 7.5, RBC 4.09 L, Hgb 12.0 L, Hct 33.9 L, MCV 82.9, MCH 29.3, MCHC 35.4, RDW Std Deviation 49.6 H, RDW Coeff of [place] 16.4 H, Plt Count 110 L, MPV 12.7 H, Immature Gran % (Auto) 0.900, Neut % (Auto) 71.1 H, Lymph % (Auto) 22.2, [place] % (Auto) 4.8, Eos % (Auto) 0.5, Baso % (Auto) 0.5, Absolute Neuts (auto) 5.3, Absolute Lymphs (auto) 1.67, Nucleated RBC % 0, Reactive Lymphocytes RARE 09/21/21 06:55: PT 13.9, INR 1.1, APTT 35.0, D-Dimer Quant (PE/DVT) 3.07 H* 09/21/21 06:55: Sodium 133 L, Potassium 3.7, Chloride 99, Carbon Dioxide 27.0, Anion Gap 7, BUN 11, Creatinine 0.83, Estim Creat Clear Calc 141.69, Est GFR (MDRD) Af Amer 138, Est GFR (MDRD) Non-Af 114, BUN/Creatinine Ratio 13.3, Glucose 85, Calcium 8.2 L, Total Creatine Kinase 189, Troponin I High Sens 4 09/21/21 06:55: Lactic Acid 0.6 09/21/21 06:55: Urine Color Yellow, Urine Clarity Clear, Urine pH 6.0, Ur Specific [place] 1.025, Urine Protein 100 H, Urine Glucose (UA) Normal, Urine Ketones 5 H, Urine Occult Blood 10 H, Urine Nitrite Positive H, Urine Bilirubin 1 H, Urine Urobilinogen 8 H, Ur Leukocyte Esterase 100 H, Urine RBC 0-5 SEEN, Urine WBC 10-25 SEEN, Ur Squamous Epith Cells 0-5 SEEN, Ur Transition Epith Cell 0-5 SEEN, Urine Bacteria 3+, Urine Mucus 2+ Micro: Microbiology 09/21/21 06:49 Nasal Secretion SARS-CoV-2 Antigen (Rapid) - Final Radiology Impression Chest CTA 09/21/21 06:35 IMPRESSION: Normal CTA chest examination, without a demonstrated pulmonary embolism or arterial dissection. Electronically Signed: Berny Hernandez MD at 8:58 EST , Service support , Upper Extremity CT 09/21/21 06:35 IMPRESSION: 5 cm x 2.9 cm x 8.9 cm convex fluid collection with thickened wall in the soft tissues overlying the proximal and midportion of the radius as described. There is evidence of overlying soft tissue swelling as well as skin thickening. No bony destruction is seen. No radiopaque foreign bodies present. Electronically Signed: Berny Hernandez MD at 8:55 EST , Service support , Procedure Criteria Type of Procedure Procedure Type: Elective Elective Risks - COVID COVID Risk Discussion: The surgeon/proceduralist and patient have discussed in detail the risk of exposure to and/or potential harm posed by the COVID-19 virus with having a surgery/procedure at this time versus the risk of delaying the surgery/procedure. It is not possible to know either the risk of delaying the surgery or procedure or chance of getting an infection with perfect accuracy, but a joint decision was made between the patient and the surgeon/proceduralist to proceed at this time with the scheduled surgery/procedure as indicated on the consent form. Charges/Coding Visit Charges Inpatient E&M: 51062 Init Hosp L2 (ICD-10 - L02.414, L02.413, F19.11, F15.10, U07.1, F17.200, B19.20 )
[2021-09-21 22:48] LABS: M R Staph aureus DNA By PCR Negative (Negative); Probe Check PASS; Specimen Processing Control PASS
[2021-09-22] VITALS (10 sets, daily range): BP systolic 102–132; BP diastolic 49–76; PULSE 107–126; RESP 16–24; TEMP 36.6–37.7; O2SAT 92–99; BMI 22.6
--- NOTE | 2021-09-22 | LES_PTH ---
PATIENT: MEME CORNEJO LOC: [facility] U#:[id number] AGE/SX: 31/M ROOM: [id number] RE09/21/[address]: Dr. Sherlyn Carlson MD : 1990 BED: 1 DIS: 09/26/2021 SPEC #: [id number] RECD: 09/25/21 07:54 STATUS: CHRISTIAN REFranklin #: [id number] MARGO: 09/22/21 00:[address]: Gabriel Fischer DEPT: SURGICAL PATHOLOGY RECD BY: Henri Tubbs ENTERED: 09/25/21 10:41 SP TYPE: Lesion OTHR DR: MD Dr. Fidel Barnard MD Dr. James A Slaby, MD No Primary Care Phys Tissues: A - Skin of forearm, NOS B - Skin of forearm, NOS Procedures: Surgery Specimen Level III Comments: @ Ordering doctor for SUIV edited from to @ by MARTIN at 09/25/21 1532 @ Submitting doctor edited from to @ by RGOOD at 09/25/21 153 HEADER OPERATION: Incision, drainage abscess forearm PRE-OP DIAGNOSIS: Abscess of forearm, right and left TISSUE SUBMITTED: A ? Right forearm tissue, B ? Left forearm tissue MICROSCOPIC DIAGNOSIS A. Right forearm tissue: Pieces of skin with underlying tissue with acute inflammation and abscess formation. B. Left forearm tissue: Pieces of skin with underlying tissue with acute inflammation and abscess formation. IVAN:ayesha 09/26/2021 MICROSCOPIC DESCRIPTION Slides are reviewed. GROSS DESCRIPTION A - Received in fixative is one container labeled with the patient's name and designated right forearm tissue. The specimen consists of a piece of skin with underlying tissue measuring 11 x 2.2 cm and up to 1.5 cm in thickness. Also present in the container is a smaller piece of skin with underlying tissue measuring 2.5 x 2 x 1.2 cm. Also present in the container are multiple pieces of skin and soft tissue measuring in aggregate 4.5 x 3 x 0.5 cm. No mass lesion is identified. Furniture Dipper sections are submitted in three cassettes. B - Received in fixative is one container labeled with the patient's name and designated left forearm tissue. The specimen consists of multiple pieces of skin and soft tissue measuring in aggregate 4.5 x 4 x 1 cm. No mass lesion is identified. Furniture Dipper sections are submitted in two cassettes. / SJ:ayesha 09/25/21 TC:2 CPT: 78844 x2
[2021-09-22 00:46] LABS: Amphetamine Urine VISTA POSITIVE (<1000 ng/mL); Barbiturate Urine VISTA NEGATIVE (< 200 ng/mL); Benzodiazepine Urine VISTA NEGATIVE (< 200 ng/mL); Cocaine Urine VISTA NEGATIVE (< 300 ng/mL); Ecstacy Urine VISTA POSITIVE (< 500 ng/mL); Methadone Urine VISTA NEGATIVE (< 300 ng/mL); PCP Urine VISTA NEGATIVE (< 25 ng/mL); THC Urine VISTA NEGATIVE (< 50 ng/mL); Vista UDS pH Range 4
[2021-09-22] MEDS: 0.9% Normal Saline 1,000 ML 200 ML IV ×2 (05:54→18:32)
[2021-09-22 06:36] LABS: Absolute Neutrophil Count 6.1 X10^3/uL (2.0-7.7); Basophil# 0.05 X10^3/uL; Basophil% 0.6 % (0-1); Eosinophil# 0.06 X10^3/uL; Eosinophils% 0.7 % (0-5); Hematocrit 31.4 % (40-54); Hemoglobin 10.8 g/dL (13.0-16.5); Lymphocyte % 23.2 % (19-41); Mean Corp Hgb Conc 34.4 g/dL (32-36); Mean Corpuscular Hgb 29.6 pg (27.0-32.0); Mean Platelet Vol. 13.5 fl (6.2-12.0); Monocyte# 0.32 X10^3/uL; Monocyte% 3.7 % (0-10); NRBC Flagged by Analyzer 0 % (0-5); Neutrophil % 70.9 % (47-70); POSITIVE COUNT YES; POSITIVE MORPHOLOGY YES; Platelet Count 96 K/mm3 (150-450); RBC Distribution Width SD 53.1 fl (35.1-43.9); Red Blood Count 3.65 M/mm3 (4.6-6.2); White Blood Count 8.6 K/mm3 (4.4-11.0)
[2021-09-22 06:37] LABS: Differential Indicated SCAN CRITERIA MET
[2021-09-22 06:49] LABS: Atypical Lymphocyte 1+ %
[2021-09-22 07:02] LABS: Anion Gap 8 (5-15); BUN 12 mg/dL (7-18); BUN/Creat Ratio 16.9 RATIO (10-20); Calcium,Total 7.6 mg/dL (8.5-10.1); Chloride 101 mmol/L (98-107); Creatinine, Serum 0.71 mg/dL (0.70-1.30); EST Glomerular Filtration Rate 136 mL/min (>60); Est Glom Filt Rate - Afr Amer 164 mL/min (>60); Estimated Creatinine Clearance 164.15 ml/min; Glucose 102 mg/dL (74-106); Potassium 3.7 mmol/L (3.5-5.1); Sodium Level 130 mmol/L (136-145)
--- NOTE | 2021-09-22 07:25 | PCM.PN.HOSP ---
Subjective Subjective Patient admitted to regular nursing floor broad-spectrum antibiotic therapy initiated on admission. Patient still complains of excruciating pain involving both forearms. Patient was seen and evaluated by Dr. Fischer, with plans for patient to undergo I&D Objective Data Objective Data Vital Signs: Vital Signs Temp Pulse Resp BP Pulse Ox 98.7 F 109 H 18 102/68 99 09/22/21 02:38 09/22/21 02:38 09/22/21 02:38 09/22/21 02:38 09/22/21 02:38 Oxygen Delivery Method Room Air Weight: 77.7 kg Body Mass Index (BMI) 22.6 Intake & Output: Intake and Output for Last 24 Hours 09/20/21 09/21/21 09/22/21 23:59 23:59 23:59 Intake Total 3462 / 3462 1156 / 1156 Balance 3462 / 3462 1156 / 1156 Lab / Micro Data Result Diagrams: 09/22/21 05:52 09/22/21 05:52 Labs: Laboratory Results - last 24 hr 09/21/21 06:55: Reactive Lymphocytes RARE 09/21/21 06:55: PT 13.9, INR 1.1, APTT 35.0, D-Dimer Quant (PE/DVT) 3.07 H* 09/21/21 06:55: Sodium 133 L, Potassium 3.7, Chloride 99, Carbon Dioxide 27.0, Anion Gap 7, BUN 11, Creatinine 0.83, Estim Creat Clear Calc 141.69, Est GFR (MDRD) Af Amer 138, Est GFR (MDRD) Non-Af 114, BUN/Creatinine Ratio 13.3, Glucose 85, Calcium 8.2 L, Total Creatine Kinase 189, Troponin I High Sens 4 09/21/21 06:55: Lactic Acid 0.6 09/21/21 06:55: Urine Opiates Screen NEGATIVE, Urine Methadone Screen NEGATIVE, Ur Barbiturates Screen NEGATIVE, Ur Phencyclidine Scrn NEGATIVE, Ur Amphetamines Screen POSITIVE H, U Methamphetamin-MDMA POSITIVE H, U Benzodiazepines Scrn NEGATIVE, Urine Cocaine Screen NEGATIVE, U Cannabinoids Screen NEGATIVE, Ur Drug Screen Comment 09/21/21 13:10: MRSA (PCR) Negative 09/22/21 05:52: WBC 8.6, RBC 3.65 L, Hgb 10.8 L, Hct 31.4 L, MCV 86.0, MCH 29.6, MCHC 34.4, RDW Std Deviation 53.1 H, RDW Coeff of Dennis 17.0 H, Plt Count 96 L, MPV 13.5 H, Immature Gran % (Auto) 0.900, Neut % (Auto) 70.9 H, Lymph % (Auto) 23.2, [place] % (Auto) 3.7, Eos % (Auto) 0.7, Baso % (Auto) 0.6, Absolute Neuts (auto) 6.1, Absolute Lymphs (auto) 2.00, Nucleated RBC % 0, Atypical Lymphocytes 1+ 09/22/21 05:52: Sodium 130 L, Potassium 3.7, Chloride 101, Carbon Dioxide 21.0, Anion Gap 8, BUN 12, Creatinine 0.71, Estim Creat Clear Calc 164.15, Est GFR (MDRD) Af Amer 164, Est GFR (MDRD) Non-Af 136, BUN/Creatinine Ratio 16.9, Glucose 102, Calcium 7.6 L Micro: Microbiology 09/21/21 06:49 Nasal Secretion SARS-CoV-2 Antigen (Rapid) - Final Radiography Diagnostic Testing: Radiology Impression Chest CTA 09/21/21 06:35 IMPRESSION: Normal CTA chest examination, without a demonstrated pulmonary embolism or arterial dissection. Electronically Signed: Berny Hernandez MD at 8:58 EST , Service support , Upper Extremity CT 09/21/21 06:35 IMPRESSION: 5 cm x 2.9 cm x 8.9 cm convex fluid collection with thickened wall in the soft tissues overlying the proximal and midportion of the radius as described. There is evidence of overlying soft tissue swelling as well as skin thickening. No bony destruction is seen. No radiopaque foreign bodies present. Electronically Signed: Berny Hernandez MD at 8:55 EST , Service support , Physical Exam Narrative GENERAL: Appears to be in some discomfort HEENT: Atraumatic; EYES; Anicteric, Normal Conjunctiva NECK; supple, normal thyroid, RESPIRATORY: Diminished to auscultation CARDIOVASCULAR: Regular S1 S2, GI: soft, normoactive bowel sounds, : No Renal angle tenderness; EXTREMITIES: No edema, no clubbing, MUSCULOSKELETAL: Abscesses involving upper extremities 3 on the on the dorsal surface of the left forearm and one indurated abscess on the palmar surface of the right NEURO: Awake; no lateralizing signs. SKIN: As described above PSYCH; Flat affect Assessment & Plan Assessment/Plan (1) Abscess of left elbow: (2) Abscess of forearm, right: (3) Acute UTI: PLAN: Patient is a 31-year-old gentleman with history of polysubstance abuse presenting with fever and chills as well as nodular swellings involving both forearms 1. Cellulitis and abscesses involving both forearms ?In a patient with IVDA. Patient has been admitted to regular nursing floor broad-spectrum antibiotic therapy with Zosyn clindamycin and vancomycin initiated consult placed to Dr. Hudson with plastic surgery from the ED -09/22/2021;Patient admitted to regular nursing floor broad-spectrum antibiotic therapy initiated on admission. Patient still complains of excruciating pain involving both forearms. Patient was seen and evaluated by Dr. Fischer, with plans for patient to under 2. Acute cystitis ?Patient is on antibiotics ?09/22/2021; on broad-spectrum antibiotic therapy urine cultures pending 3. Polysubstance abuse ?Patient was counseled on cessation 4. Recent COVID-19 infection ?Currently stable not requiring any supplemental oxygen 5. Elevated D-dimer ?Related to recent COVID-[address] of the chest obtained was negative for PE 6. Tobacco dependence - Counseled on cessation, offered nicotine patch for tobacco cravings 7. History of hep C ?Patient to follow-up with PCP for subsequent care 8. DVT prophylaxis - On enoxaparin Charges/Coding Visit Charges Inpatient E&M: 27593 Subs Hosp L3
[2021-09-22] MEDS: HYDROmorphone 1 MG/ML Syringe IV ×3 (08:24→22:24)
[2021-09-22] MEDS: 0.9% Saline Lock 10 ML Syringe IV ×2 (08:24→18:04)
--- NOTE | 2021-09-22 10:16 | CASEMGMT ---
Addendum entered by Edith Dent 09/22/21 11:18: Janette Addiction Therapist is at [facility]. SW updated Janette on referral. Original Note: Social Work Note SW reviewed chart. Pt with current IV Meth use. Pt was sober for 10 years and relapsed 10/09 after of Grandfather. Pt is clean for months from Fentanyl. SW in to speak with pt. SW introduced self and role at [facility]. Pt is alert and orientated. Pt confirms he currently uses IV Meth. SW spoke with pt about substance abuse/use resources and speaking with [facility] Addiction Therapist. Pt agreeable to taking substance abuse/use resources and speaking with [facility] Addiction Therapist. SW provided pt with Substance Abuse/Use resources and will provide referral to [facility] Addiction Therapist Janette. Pt denied additional needs or concerns at this time. Edith Dent UNIX ADMINISTRATOR, [employer]
--- NOTE | 2021-09-22 10:25 | CASEMGMT ---
RHIANNON SIMS Assessment: Face to Face with pt for initial transition planning/care coordination assessment. RN BETHANY introduced self and role at [facility], pt voices understanding and consents to assessment. Pt is A/O x4 and answers all questions appropriately at this time. Pt lying in bed with eyes closed in no distress. Care providers, pharmacy, and demographics verified/updated. Admitting Dx: Bilat UE cellulitis PCP: Pt states he does not have a PCP and declines need for healthcare directory pamphlet. Specialists: Pt states he has a referral for a GI in [place] for his Hep C but he does not know the name of the physician. Preferred Pharmacy: [facility] [place] Insurance: [id number] Prescription Benefit: yes LW/HPOA: Pt denies having a LW/DPOA and denies need for info regarding AD. LNOK: Ana Cristina Kilpatrick, aunt Living Arrangements: Pt lives with 4 roommates in a two story house with 4-5 steps to enter. Pt reports he is I in ADL's and denies concerns at home. Transportation: Pt does not drive. He states his aunt is able to transport him to medical appts. DME/HHC/SNF: Pt denies having any DME, hx of HHC or SNF stays. Pt to have surgery today. Discussed options for HHC for wound care. Pt states discussed going to the wound center or having HHC. Pt states he has roommates who can provide him with wound care. Pt is unsure if he would need HHC. Made him aware this RN CM will meet with him post surgery. Pt states no further concerns/needs. CM to follow. Advised pt to ask CM if any further question/concerns/needs arise, voices understanding. Pt Goal: Home with roommates providing wound care Plan: TBD- Home with wound center follow up vs HHC vs roommates completing dressing changes.
--- NOTE | 2021-09-22 11:00 | NURSING ---
verbal report given to Darryl JURADO
--- NOTE | 2021-09-22 12:22 | ADDICTION ---
This worker met with PT to discuss his substance use. PT reported that he is interested in residential treatment and would like resources to discuss with his family. This worker printed off a list of local residential facilities for the client to present and decide on once discharged.
--- NOTE | 2021-09-22 16:33 | NURSING ---
pt remains off unit
--- NOTE | 2021-09-22 18:23 | OP.PCM_ITS ---
Problems Associated Problem List Diagnoses (1) Open wound of left forearm with complication: (2) Open wound of right forearm with complication: (3) Abscess of forearm, left: (4) Abscess of forearm, right: (5) History of intravenous drug abuse: (6) Methamphetamine abuse: (7) COVID-19: (8) Smoker: (9) Hepatitis C: Report of Operation Date of Procedure: 09/22/21 Pre-Operative Diagnosis: (1) IV drug abuse abscesses cluster volar ulnar aspect right proximal forearm. (2) IV drug abuse abscess volar radial aspect left proximal forearm. (3) History of intravenous drug abuse: (4) Methamphetamine abuse: (5) COVID-19: (6) Smoker: (7) Hepatitis C: Post-Operative Diagnosis: (1) IV drug abuse abscesses cluster volar ulnar aspect right proximal forearm. (2) IV drug abuse abscess volar radial aspect left proximal forearm. (3) History of intravenous drug abuse: (4) Methamphetamine abuse: (5) COVID-19: (6) Smoker: (7) Hepatitis C: (8) Open surgical wound volar ulnar aspect right proximal forearm. (9) Open surgical wound volar radial aspect left proximal forearm. Surgery/Procedure Performed:: 1. Surgical preparation volar ulnar aspect right proximal forearm with incision and drainage and excisional debridement IV drug abuse abscesses cluster (104 cm2). 2. Surgical preparation volar radial aspect left proximal forearm with incision and drainage and excisional debridement IV drug abuse abscess (19.25 cm2). Description of Surgical Findings:: MEME CORNEJO, is a 31 M who presents with painful masses on both forearms that have increased in size, redness, and pain in the last couple of days. He has a history of IV drug use. He states he has been clean for 10 years and recently had some methamphetamine injections in both upper extremities which led to his present symptoms. He states he was diagnosed with COVID-19 last month but did not require oxygen. His test apparently came back positive on 08/27/2021 and is currently out of isolation. In the ED, his WBC was 7.5. His Lactate was 0.6. His D-dimer was 3.07. He was started on IV antibiotics with Zosyn, Clindamycin, and Vancomycin. CT showed 5 cm x 2.9 cm x 8.9 cm convex fluid collection with thickened wall in the soft tissues overlying the proximal and midportion of the radius as described. There is evidence of overlying soft tissue swelling as well as skin thickening. No bony destruction is seen. No radiopaque foreign bodies present. Because his D-dimer was elevated with an associated positive COVID test, a CTA of the chest was done. It showed normal CTA chest examination, without a demonstrated pulmonary embolism or arterial dissection. I was asked to evaluate this patient for surgical options for treatment. Patient was informed of the risks and complications of the procedure including alternatives to surgery. These were discussed with the patient personally. Patient voices understanding and wishes to proceed. Some of the risks and complications that were discussed included but were not inclusive of failure to diagnose including symptom relief, pain, infection, numbness, stiffness, loss of digit, RSD (CRPS), need for further surgery, contracture, and wound healing problems. Encouraged patient to stop smoking as it may have deleterious effects on wound healing. Total tourniquet time right forearm - 23 minutes. Total tourniquet time left forearm - 16 minutes. Size of wound volar ulnar aspect right proximal forearm - 16 x 6.5 x 2 cm. Size of wound volar radial aspect left proximal forearm - 5.5 x 3.5 x 1.5 cm. Surgeon: Gabriel Fischer customer technical services manager: None Type of Anesthesia: General (with tourniquet.) Specimen's removed: 1. Soft tissue volar ulnar aspect right proximal forearm to Pathology and Microbiology. 2. Soft tissue volar radial aspect left proximal forearm to Pathology and Microbiology. Drains: None. Estimated Blood Loss (mL): 20. Description of Procedure: Patient was taken to OR in supine position and was placed under general anesthesia. The right upper extremity was prepped and draped in the usual fashion. SCD's were placed for DVT prophylaxis. Perioperative antibiotics were given intravenously. Using xylocaine with ep inephrine, the abscesses on the right forearm were infiltrated mostly for hemostasis purposes. Using a towel I loosely compressed the right forearm. I didn't want to use an Esmarch bandage for fear of spreading the infection. The tourniquet was elevated to 250 mmHg. Under loupe magnification, I made a longitudinal elliptical excision through all three abscesses. They looked multiple but in the subcutaneous tissue, the pus communicated freely as one larger abscess. The pus was copious and somewhat thickened which is usually indicative of a Staph. The pus extended down to the flexor muscle mass on the volar ulnar aspect of the right forearm. Some of the muscles looked a little dusky. The overlying undermined skin was excised and debrided to help with the wound care. The wound was irrigated with saline. I made incisions in the fascia and the muscles started to pink up and show viability. I explored deep to the muscle and no deeper pockets of pus were identified. By the end of the procedure the muscles on the right volar ulnar forearm were pink and viable. Size of the wound right volar ulnar forearm was 16 x 6.5 x 2 cm or 104 cm2. The soft tissue was sent to Pathology for analysis to rule out carcinoma and to Microbiology for culture. A positive culture will necessitate antibiotic therapy. The tourniquet was released after 23 minutes. Hemostasis was obtained with electrocautery. No arterial bleeders were seen. I dressed the wound with Mepitel nonadherent dressing followed by Kerlix gauze and Betadine followed by dry Kerlix gauze, ABD pads and a compression dora wrap. The left upper extremity was then prepped and draped in the usual fashion. Using xylocaine with epinephrine, the abscess on the left forearm were infiltrated mostly for hemostasis purposes. Using a towel I loosely compressed the left forearm. I didn't want to use an Esmarch bandage for fear of spreading the infection. The tourniquet was elevated to 250 mmHg. Under loupe magnificat ion, I made a longitudinal elliptical excision through the abscess on the volar radial aspect of the left forearm. There was pus in the subcutaneous tissue. The pus was copious and somewhat thickened which is usually indicative of a Staph. The pus extended down to the extensor muscle mass on the volar radial aspect of the left forearm. Some of the muscles looked a little dusky. The overlying undermined skin was excised and debrided to help with the wound care. The wound was irrigated with saline. I made incisions in the fascia and the muscles started to pink up and show viability. I explored deep to the muscle and no deeper pockets of pus were identified. By the end of the procedure the muscles on the left volar ulnar forearm were pink and viable. Size of the wound left volar radial forearm was 5.5 x 3.5 x 1.5 cm or 19.25 cm2. The soft tissue was sent to Pathology for analysis to rule out carcinoma and to Microbiology for culture. A positive culture will necessitate antibiotic therapy. The tourniquet was released after 16 minutes. Hemostasis was obtained with electrocautery. No arterial bleeders were seen. I dressed the wound with Mepitel nonadherent dressing followed by Kerlix gauze and Betadine followed by dry Kerlix gauze, ABD pads and a compression dora wrap. Patient tolerated the procedure well and was sent to PACU in satisfactory condition. Patient will be sent upstairs for continued postop care. Will change the dressing to Silver or Dakins dressing changes. After discharge, he can followup at the Wound Center for continued wound care. A positive culture will necessitate antibiotic therapy. If a plateau is seen in the healing process, can proceed with delayed closure with skin grafting. Anticipate increased stiffness in his fingers of both hands. Will instruct him that flexion of MP joints are imperative and keeping the thumb abducted away from the index finger to minimize a first web space contracture. If necessary a referral can be made to OT for range of motion exercises, strengthening, and edema management. Grafts/Implants Used: None. Complications None. Admit VTE Documentation VTE Present on Admission: No VTE Mechan Device Prophylaxis: SCD's VTE Pharm Prophylaxis ordered?: Yes Addendum Addendum: Surgery Charges CPT - 51179 ICD-10 - S51.801A, L02.413, F19.11, F15.10, U07.1, F17.200, B19.20 86578 S51.801A, L02.413, F19.11, F15.10, U07.1, F17.200, B19.20 32310 L02.413, S51.801A, F19.11, F15.10, U07.1, F17.200, B19.20 59362 S51.802A, L02.414, F19.11, F15.10, U07.1, F17.200, B19.20 25570 L02.414, S51.802A, F19.11, F15.10, U07.1, F17.200, B19.20
[2021-09-22] MEDS: oxyCODONE 5 MG Tablet PO (19:38)
[2021-09-22] MEDS: Loperamide 2 MG Capsule PO (19:38)
[2021-09-22] MEDS: Acetaminophen 325 MG Tablet 650 MG PO (19:38)
[2021-09-22 19:42] LABS: Vancomycin, Trough Level 18.9 ug/mL (5.0-15.0)
--- NOTE | 2021-09-22 20:03 | PCM.RX.CS ---
Consult Pharmacy has been consulted to manage selected antiobiotic: Vancomycin Type of Consult: Follow-up Suspected Infection: Skin/Soft tissue Labs: Sodium 130 mmol/L (136-145) L 09/22/21 05:52 Potassium 3.7 mmol/L (3.5-5.1) 09/22/21 05:52 Chloride 101 mmol/L (98-107) 09/22/21 05:52 Carbon Dioxide 21.0 mmol/L (21.0-32.0) 09/22/21 05:52 Anion Gap 8 (5-15) 09/22/21 05:52 BUN 12 mg/dL (7-18) 09/22/21 05:52 Creatinine 0.71 mg/dL (0.70-1.30) 09/22/21 05:52 Est GFR (MDRD) Af Amer 164 mL/min (>60) 09/22/21 05:52 Est GFR (MDRD) Non-Af 136 mL/min (>60) 09/22/21 05:52 BUN/Creatinine Ratio 16.9 RATIO (10-20) 09/22/21 05:52 Glucose 102 mg/dL (74-106) 09/22/21 05:52 Vancomycin Trough 18.9 ug/mL (5.0-15.0) H 09/22/21 18:32 Microbiology: Microbiology 09/21/21 06:55 Urine, Clean Catch Urine Culture - Preliminary Culture exhibits no growth. 09/21/21 06:49 Nasal Secretion SARS-CoV-2 Antigen (Rapid) - Final Goal Trough: 10-15 mcg/mL Pharmacy Plan for Drug Dosing: VANCOMYCIN LEVEL RECEIVED Current Vancomycin Dose: 1250MG Q12 Number of Doses Received: 4 Vancomycin Level: 18.9 MG/DL Hours Since Last Dose: UNCLEAR, IT APPEARS THE 1900 DOSE WAS HUNG AT 1804 AND THE LEVEL WAS DRAWN AT 1832 Renal Function: SCR 0.71, CRCL 164 ML/MIN Renal Function Trend: STABLE Lab/Micro: BLOOD AND WOUND CX PENDING Vancomycin Plan/Comments: SPOKE TO NURSE YIFAN @1955, THE DOSE IS INDEED GOING BUT HE IS UNSURE ON TIMING OF DOSE BEING HUNG AND TIME OF TROUGH DRAW HE WAS NOT HERE YET. HE DID MENTION THAT THE DOSE HAS ABOUT 15 MINUTES LEFT TO INFUSE. DUE TO THE DRUG BEING HUNG PRIOR TO TROUGH BEING DRAWN, WILL GET ANOTHER TROUGH PRIOR TO NEXT DOSE TO RE-ASSES LEVEL. Pending Level: 09/23/21 @ 0630 Pharmacy Service will continue to monitor and adjust dosing as required.
[2021-09-23] MEDS: 0.9% Normal Saline 1,000 ML 200 ML IV ×4 (00:19→21:48)
[2021-09-23 04:48] VITALS: BP 101/48; PULSE 110; RESP 16; TEMP 37.1; O2SAT 100
[2021-09-23] MEDS: HYDROmorphone 1 MG/ML Syringe IV ×5 (04:53→23:03)
[2021-09-23] MEDS: 0.9% Saline Lock 10 ML Syringe IV ×2 (05:02→10:01)
--- NOTE | 2021-09-23 06:55 | PCM.PN.HOSP ---
Subjective Subjective Patient underwent I&D by Dr. Fischer on 09/22/2021. Seen this a.m. still complains of some discomfort. Diagnostic data syndrome for mild hyponatremia as well as anemia Objective Data Objective Data Vital Signs: Vital Signs Temp Pulse Resp BP Pulse Ox 98.8 F 110 H 16 101/48 L 100 09/23/21 04:48 09/23/21 04:48 09/23/21 04:48 09/23/21 04:48 09/23/21 04:48 Oxygen Delivery Method Room Air Weight: 77.7 kg Body Mass Index (BMI) 22.6 Intake & Output: Intake and Output for Last 24 Hours 09/21/21 09/22/21 09/23/21 23:59 23:59 23:59 Intake Total 3462 / 3462 3248.00 / 3248.00 1609.33 / 1609.33 Output Total 0 / 0 1050 / 1050 Balance 3462 / 3462 3248.00 / 3248.00 559.33 / 559.33 Medical Nutrition Assessment Dietitian: Malnutrition Criteria Met Start: 09/22/21 11:00 Freq: Status: Active Protocol: Document 09/22/21 11:01 [facility] (Rec: 09/22/21 11:01 [facility] [id number]) Nutrition Malnutrition Evidence of Malnutrition Exists Yes Malnutrition (severe): Acute Illness/Injury Evidenced By Suboptimal Energy Intake ( Severe),Weight Loss (Severe), Physical Changes (Moderate) Clinical Problem Acute Disease or Injury Related Malnutrition Etiology related to covid 19 last month and inability to consume adequate nutrition to meet pt est nutritional needs Signs/Symptoms as evidenced by <50% po intake and 22.2% wt loss in past month and fat/muscle loss to face and upper body. Status Active Problem Recommendation Dietitian Recommendations/Changes As medically able, rec diet as tolerated to regular with 120 ml ensure compact with medpass 4x/day Lab / Micro Data Result Diagrams: 09/23/21 07:14 09/23/21 07:14 Labs: Laboratory Results - last 24 hr 09/22/21 05:52: Sodium 130 L, Potassium 3.7, Chloride 101, Carbon Dioxide 21.0, Anion Gap 8, BUN 12, Creatinine 0.71, Estim Creat Clear Calc 164.15, Est GFR (MDRD) Af Amer 164, Est GFR (MDRD) Non-Af 136, BUN/Creatinine Ratio 16.9, Glucose 102, Calcium 7.6 L 09/22/21 18:32: Vancomycin Trough 18.9 H Micro: Microbiology 09/21/21 06:55 Urine, Clean Catch Urine Culture - Preliminary Culture exhibits no growth. 09/21/21 06:49 Nasal Secretion SARS-CoV-2 Antigen (Rapid) - Final Physical Exam Narrative GENERAL: Appears to be in some discomfort HEENT: Atraumatic; EYES; Anicteric, Normal Conjunctiva NECK; supple, normal thyroid, RESPIRATORY: Diminished to auscultation CARDIOVASCULAR: Regular S1 S2, GI: soft, normoactive bowel sounds, : No Renal angle tenderness; EXTREMITIES: No edema, no clubbing, MUSCULOSKELETAL: Both forearms in surgical dressing NEURO: Awake; no lateralizing signs. SKIN: As described above PSYCH; Flat affect Assessment & Plan Assessment/Plan (1) Abscess of left elbow: (2) Abscess of forearm, right: (3) Acute UTI: PLAN: Patient is a 31-year-old gentleman with history of polysubstance abuse presenting with fever and chills as well as nodular swellings involving both forearms 1. Cellulitis and abscesses involving both forearms ?In a patient with IVDA. Patient has been admitted to regular nursing floor broad-spectrum antibiotic therapy with Zosyn clindamycin and vancomycin initiated consult placed to Dr. Hudson with plastic surgery from the ED -09/22/2021;Patient admitted to regular nursing floor broad-spectrum antibiotic therapy initiated on admission. Patient still complains of excruciating pain involving both forearms. Patient was seen and evaluated by Dr. Fischer, with plans for patient to undergo I&D ?09/23/2021;Patient underwent I&D by Dr. Fischer on 09/22/2021. Seen this a.m. still complains of some discomfort. 2. Acute cystitis ?Patient is on antibiotics ?09/22/2021; on broad-spectrum antibiotic therapy urine cultures pending ?09/23/2021; urine cultures did not exhibit any growth 3. Polysubstance abuse ?Patient was counseled on cessation 4. Recent COVID-19 infection ?Currently stable not requiring any supplemental oxygen 5. Elevated D-dimer ?Related to recent COVID-[address] of the chest obtained was negative for PE 6. Tobacco dependence - Counseled on cessation, offered nicotine patch for tobacco cravings 7. History of hep C ?Patient to follow-up with PCP for subsequent care 8. DVT prophylaxis - On enoxaparin 9. Mild hyponatremia ?Do suspect case of SIADH from severe pain we will continue with monitoring of electrolyte 10. Anemia - Secondary to chronic disorder monitoring H&H and transfuse if patient becomes symptomatic or hemoglobin falls below 7 Charges/Coding Visit Charges Inpatient E&M: 61260 Subs Hosp L3
[2021-09-23 07:27] LABS: Absolute Lymphocyte Count 2.74 X10^3/uL (0.83-4.51); Absolute Neutrophil Count 2.4 X10^3/uL (2.0-7.7); Basophil# 0.04 X10^3/uL; Basophil% 0.7 % (0-1); Eosinophil# 0.05 X10^3/uL; Eosinophils% 0.9 % (0-5); Hematocrit 25.6 % (40-54); Hemoglobin 8.7 g/dL (13.0-16.5); Lymphocyte # 2.74 X10^3/ul (0.83-4.51); Mean Corpuscular Volume 85.3 fL (80-94); Mean Platelet Vol. 12.4 fl (6.2-12.0); Monocyte# 0.27 X10^3/uL; Monocyte% 4.8 % (0-10); NRBC Flagged by Analyzer 0 % (0-5); Neutrophil # 2.42 X10^3/uL (2.7-7.7); Neutrophil % 43.3 % (47-70); POSITIVE MORPHOLOGY YES; Platelet Count 101 K/mm3 (150-450); RBC Distribution Width SD 53.1 fl (35.1-43.9); White Blood Count 5.6 K/mm3 (4.4-11.0)
[2021-09-23] MEDS: oxyCODONE 5 MG Tablet PO ×2 (07:43→20:58)
[2021-09-23] MEDS: Acetaminophen 325 MG Tablet 650 MG PO ×2 (07:43→20:59)
[2021-09-23 07:47] LABS: Differential Indicated SCAN CRITERIA MET
[2021-09-23 07:49] LABS: Anion Gap 6 (5-15); BUN 7 mg/dL (7-18); BUN/Creat Ratio 9.1 RATIO (10-20); Chloride 103 mmol/L (98-107); Creatinine, Serum 0.77 mg/dL (0.70-1.30); EST Glomerular Filtration Rate 125 mL/min (>60); Est Glom Filt Rate - Afr Amer 151 mL/min (>60); Estimated Creatinine Clearance 151.36 ml/min; Glucose 74 mg/dL (74-106); Potassium 3.9 mmol/L (3.5-5.1); Sodium Level 134 mmol/L (136-145)
[2021-09-23 07:51] LABS: Vancomycin, Trough Level 7.2 ug/mL (5.0-15.0)
[2021-09-23 08:50] LABS: Differential Comment SCANNED
--- NOTE | 2021-09-23 08:55 | PCM.RX.CS ---
Consult Pharmacy has been consulted to manage selected antiobiotic: Vancomycin Type of Consult: Follow-up Suspected Infection: Skin/Soft tissue Prior Doses of Antibiotics Received/Current Regimen: current dose is vanc 1250mg IV q12h Labs: Sodium 134 mmol/L (136-145) L 09/23/21 07:14 Potassium 3.9 mmol/L (3.5-5.1) 09/23/21 07:14 Chloride 103 mmol/L (98-107) 09/23/21 07:14 Carbon Dioxide 25.0 mmol/L (21.0-32.0) 09/23/21 07:14 Anion Gap 6 (5-15) 09/23/21 07:14 BUN 7 mg/dL (7-18) 09/23/21 07:14 Creatinine 0.77 mg/dL (0.70-1.30) 09/23/21 07:14 Est GFR (MDRD) Af Amer 151 mL/min (>60) 09/23/21 07:14 Est GFR (MDRD) Non-Af 125 mL/min (>60) 09/23/21 07:14 BUN/Creatinine Ratio 9.1 RATIO (10-20) L 09/23/21 07:14 Glucose 74 mg/dL (74-106) 09/23/21 07:14 Vancomycin Trough 7.2 ug/mL (5.0-15.0) 09/23/21 07:14 Microbiology: Microbiology 09/21/21 06:55 Blood Culture (Wb) - Venous Blood Culture - Preliminary No growth in 48 hours. 09/21/21 06:50 Blood Culture (Wb) - Left Hand Blood Culture - Preliminary No growth in 48 hours. 09/21/21 06:55 Urine, Clean Catch Urine Culture - Preliminary Culture exhibits no growth. 09/21/21 06:49 Nasal Secretion SARS-CoV-2 Antigen (Rapid) - Final Weight used for dosin.7 kg Estimated Creatinine Clearance: 151 ml/min Goal Trough: 10-15 mcg/mL Pharmacy Plan for Drug Dosing: The vanc trough drawn at 07:14 this morning (11 hrs after the previous dose) came back as 7.2. This is below the goal range of 10-15 so will increase next dose to 1750mg IV q12h. Since this morning's 1250mg dose was already hung, will start the 1750mg a few hours earlier at 16:00 this afternoon. Will check a trough level again before the 4th dose of 1750mg. Pharmacy Service will continue to monitor and adjust dosing as required. Follow-Up Labs: Trough Vancomycin Labs to be done on [date and time ordered]: 09/25/21 03:30
[2021-09-23 09:59] VITALS: BP 112/71; PULSE 110; RESP 18; TEMP 36.9; O2SAT 96
[2021-09-23] MEDS: Enoxaparin 40 MG/0.4 ML Syringe SC (10:02)
--- NOTE | 2021-09-23 12:20 | CASEMGMT ---
SOCIAL WORK Informed by CM and nursing patient with questions regarding substance abuse treatment options. Reviewed notes, Janette-Addiction Therapist did meet with patient and provide information on treatment options once ready. Janette reports patient is not admitted to [facility]. Met with patient and patient's aunt in room. Patient gave permission for this worker to speak openly with aunt present. Reviewed handouts that were provided by Janette. All questions answered. Support and encouragement provided. Antoni Salguero, BEVERAGE MANAGER, FINANCIAL SERVICES CONSULTANT
--- NOTE | 2021-09-23 12:27 | CASEMGMT ---
RN BETHANY NOTE: To room to discuss discharge planning, dressing changes/wound care, and HHC. Pt's aunt @ bedside. Pt states he originally did not want HHC, as he felt that roommates could help w/dressing changes, but states now he would like HHC. Pt states he lives in [place] and has no preference of HHC agency. Pt and aunt made aware insurance may not approve for SN to come daily for dressing changes. Aunt lives in [place] (35 min from pt). Aunt states she is agreeable to learning how to do the dressing changes but can not go to pt's home daily. She is uncertain of how often she would be able to commit to--she plans to check w/her 1st. She also states, once she learns how to do them, she could teach someone else to do them as well, if needed. Pt/aunt made aware HHC referral cannot be initiated until Saturday, as their offices are not open on the weekend. CM to follow on Saturday for HHC for wound care/dressing changes. Magno KING RN, CM
[2021-09-23 14:02] VITALS: BP 131/76; PULSE 107; RESP 16; TEMP 37.4; O2SAT 97
[2021-09-23 16:32] VITALS: BP 112/74; PULSE 100; RESP 16; TEMP 37; O2SAT 100
--- NOTE | 2021-09-23 20:02 | PCM.PN.SRG ---
Subjective Subjective Postop #1 Patient has some forearm discomfort. Objective Data Objective Data Vital Signs: Vital Signs Temp Pulse Resp BP Pulse Ox 98.6 F 100 16 112/74 100 09/23/21 16:32 09/23/21 16:32 09/23/21 16:32 09/23/21 16:32 09/23/21 16:32 Oxygen Delivery Method Room Air Weight: 171 lb 4.787 oz Body Mass Index (BMI) 22.6 Intake & Output: Intake and Output for Last 24 Hours 09/21/21 09/22/21 09/23/21 23:59 23:59 23:59 Intake Total 3462 / 3462 3248.00 / 3248.00 4828.66 / 4828.66 Output Total 0 / 0 1375 / 1375 Balance 3462 / 3462 3248.00 / 3248.00 3453.66 / 3453.66 Medical Nutrition Assessment Dietitian: Malnutrition Criteria Met Start: 09/22/21 11:00 Freq: Status: Active Protocol: Document 09/22/21 11:01 [facility] (Rec: 09/22/21 11:01 [facility] [id number]) Nutrition Malnutrition Evidence of Malnutrition Exists Yes Malnutrition (severe): Acute Illness/Injury Evidenced By Suboptimal Energy Intake ( Severe),Weight Loss (Severe), Physical Changes (Moderate) Clinical Problem Acute Disease or Injury Related Malnutrition Etiology related to covid 19 last month and inability to consume adequate nutrition to meet pt est nutritional needs Signs/Symptoms as evidenced by <50% po intake and 22.2% wt loss in past month and fat/muscle loss to face and upper body. Status Active Problem Recommendation Dietitian Recommendations/Changes As medically able, rec diet as tolerated to regular with 120 ml ensure compact with medpass 4x/day Lab / Micro Data Attestation: I reviewed the patient's lab results. Result Diagrams: 09/25/21 14:50 09/25/21 14:50 Labs: Laboratory Results - last 24 hr 09/23/21 07:14: WBC 5.6, RBC 3.00 L, Hgb 8.7 L, Hct 25.6 L, MCV 85.3, MCH 29.0, MCHC 34.0, RDW Std Deviation 53.1 H, RDW Coeff of Dennis 17.0 H, Plt Count 101 L, MPV 12.4 H, Immature Gran % (Auto) 1.300 H, Neut % (Auto) 43.3 L, Lymph % (Auto) 49.0 H, [place] % (Auto) 4.8, Eos % (Auto) 0.9, Baso % (Auto) 0.7, Absolute Neuts (auto) 2.4, Absolute Lymphs (auto) 2.74, Nucleated RBC % 0, Differential Comment SCANNED 09/23/21 07:14: Sodium 134 L, Potassium 3.9, Chloride 103, Carbon Dioxide 25.0, Anion Gap 6, BUN 7, Creatinine 0.77, Estim Creat Clear Calc 151.36, Est GFR (MDRD) Af Amer 151, Est GFR (MDRD) Non-Af 125, BUN/Creatinine Ratio 9.1 L, Glucose 74, Calcium 7.0 L 09/23/21 07:14: Vancomycin Trough 7.2 Micro: Microbiology 09/22/21 16:40 Wound - Other Gram Stain - Final 09/22/21 16:40 Wound - Other Wound Culture - Preliminary Staphylococcus aureus 09/22/21 16:40 Wound - Other Gram Stain - Final 09/22/21 16:40 Wound - Other Wound Culture - Preliminary Staphylococcus aureus 09/21/21 06:55 Blood Culture (Wb) - Venous Blood Culture - Preliminary No growth in 48 hours. 09/21/21 06:50 Blood Culture (Wb) - Left Hand Blood Culture - Preliminary No growth in 48 hours. 09/21/21 06:55 Urine, Clean Catch Urine Culture - Preliminary Culture exhibits no growth. 09/21/21 06:49 Nasal Secretion SARS-CoV-2 Antigen (Rapid) - Final Physical Exam Narrative General - Alert and Oriented HEENT - PERRL. EOMI. Neck - Supple and nontender. Abdomen - Soft and nondistended. mExtremities - No axillary adenopathy. Radial pulses are palpable. There are two large wounds present on the volar ulnar aspect of the right forearm and the volar radial aspect of the left forearm.. The wounds are clean with some granulation tissue present. The muscles that are exposed are pink and viable. The right forearm wound measures 16.5 x 6 x 2 cm or 104 cm2. The left forearm wound measures 5.5 x 3.5 x 1.5 cm or 19.25 cm2. Neuro - CN II-XII grossly intact. Psych - Normal mood and affect. Assessment & Plan Assessment/Plan (1) Abscess of forearm, left: (2) Open wound of left forearm with complication: (3) Abscess of forearm, right: (4) Open wound of right forearm with complication: (5) History of intravenous drug abuse: (6) Methamphetamine abuse: (7) COVID-19: (8) Smoker: PLAN: Patient's incisions are healing satisfactory. The dressing changes are painful, but he tolerated reasonably well. They were dressed with Saline dressing changes. We ordered Silver dressing changes and will change to them when available. Continue Zosyn, Clindamycin, and Vancomycin. Operative cultures show Staphylococcus aureus thus far. Encourage range of motion exercises to minimize stiffness. Encourage nutritional supplementation with protein to help the healing process. Will need Home Health assist at discharge. Can also followup at the [facility] after discharge. We can see him on Mondays. Encouraged patient to stop smoking as it may have deleterious effects on wound healing.
[2021-09-23 20:49] VITALS: BP 130/64; PULSE 110; RESP 16; TEMP 39.3; O2SAT 94
[2021-09-23 23:05] VITALS: TEMP 37
[2021-09-24 03:32] VITALS: BP 114/77; PULSE 104; RESP 16; TEMP 37.6; O2SAT 96
[2021-09-24] MEDS: HYDROmorphone 1 MG/ML Syringe IV ×3 (03:38→18:13)
[2021-09-24] MEDS: Acetaminophen 325 MG Tablet 650 MG PO ×2 (06:04→16:05)
[2021-09-24] MEDS: oxyCODONE 5 MG Tablet PO ×2 (06:05→20:48)
--- NOTE | 2021-09-24 07:34 | PN.HOSP_ITS ---
Subjective Subjective Patient seen complains of pain in both upper extremities. Wound cultures so far positive for methicillin sensitive staph aureus Objective Data Objective Data Vital Signs: Vital Signs Temp Pulse Resp BP Pulse Ox 99.7 F H 104 H 16 114/77 96 09/24/21 03:32 09/24/21 03:32 09/24/21 03:32 09/24/21 03:32 09/24/21 03:32 Oxygen Delivery Method Room Air Weight: 77.7 kg Body Mass Index (BMI) 22.6 Intake & Output: Intake and Output for Last 24 Hours 09/22/21 09/23/21 09/24/21 23:59 23:59 23:59 Intake Total 3248.00 / 3248.00 5435.33 / 5835.33 1285 / 1285 Output Total 0 / 0 1375 / 1975 1600 / 1600 Balance 3248.00 / 3248.00 4060.33 / 3860.33 -315 / -315 Medical Nutrition Assessment Dietitian: Malnutrition Criteria Met Start: 09/22/21 11:00 Freq: Status: Active Protocol: Document 09/22/21 11:01 [facility] (Rec: 09/22/21 11:01 [facility] [id number]) Nutrition Malnutrition Evidence of Malnutrition Exists Yes Malnutrition (severe): Acute Illness/Injury Evidenced By Suboptimal Energy Intake ( Severe),Weight Loss (Severe), Physical Changes (Moderate) Clinical Problem Acute Disease or Injury Related Malnutrition Etiology related to covid 19 last month and inability to consume adequate nutrition to meet pt est nutritional needs Signs/Symptoms as evidenced by <50% po intake and 22.2% wt loss in past month and fat/muscle loss to face and upper body. Status Active Problem Recommendation Dietitian Recommendations/Changes As medically able, rec diet as tolerated to regular with 120 ml ensure compact with medpass 4x/day Lab / Micro Data Result Diagrams: 09/23/21 07:14 09/24/21 07:40 Labs: Laboratory Results - last 24 hr 09/23/21 07:14: WBC 5.6, RBC 3.00 L, Hgb 8.7 L, Hct 25.6 L, MCV 85.3, MCH 29.0, MCHC 34.0, RDW Std Deviation 53.1 H, RDW Coeff of Dennis 17.0 H, Plt Count 101 L, MPV 12.4 H, Immature Gran % (Auto) 1.300 H, Neut % (Auto) 43.3 L, Lymph % (Auto) 49.0 H, [place] % (Auto) 4.8, Eos % (Auto) 0.9, Baso % (Auto) 0.7, Absolute Neuts (auto) 2.4, Absolute Lymphs (auto) 2.74, Nucleated RBC % 0, Differential Comment SCANNED 09/23/21 07:14: Sodium 134 L, Potassium 3.9, Chloride 103, Carbon Dioxide 25.0, Anion Gap 6, BUN 7, Creatinine 0.77, Estim Creat Clear Calc 151.36, Est GFR (MDRD) Af Amer 151, Est GFR (MDRD) Non-Af 125, BUN/Creatinine Ratio 9.1 L, Glucose 74, Calcium 7.0 L 09/23/21 07:14: Vancomycin Trough 7.2 Micro: Microbiology 09/22/21 16:40 Wound - Other Gram Stain - Final 09/22/21 16:40 Wound - Other Wound Culture - Preliminary Staphylococcus aureus 09/22/21 16:40 Wound - Other Gram Stain - Final 09/22/21 16:40 Wound - Other Wound Culture - Preliminary Staphylococcus aureus 09/21/21 06:55 Blood Culture (Wb) - Venous Blood Culture - Preliminary No growth in 48 hours. 09/21/21 06:50 Blood Culture (Wb) - Left Hand Blood Culture - Preliminary No growth in 48 hours. 09/21/21 06:55 Urine, Clean Catch Urine Culture - Preliminary Culture exhibits no growth. 09/21/21 06:49 Nasal Secretion SARS-CoV-2 Antigen (Rapid) - Final Physical Exam Narrative GENERAL: Appears to be in some discomfort HEENT: Atraumatic; EYES; Anicteric, Normal Conjunctiva NECK; supple, normal thyroid, RESPIRATORY: Diminished to auscultation CARDIOVASCULAR: Regular S1 S2, GI: soft, normoactive bowel sounds, : No Renal angle tenderness; EXTREMITIES: No edema, no clubbing, MUSCULOSKELETAL: Both forearms in surgical dressing NEURO: Awake; no lateralizing signs. SKIN: As described above PSYCH; Flat affect Assessment & Plan Assessment/Plan (1) Abscess of left elbow: (2) Abscess of forearm, right: (3) Acute UTI: PLAN: Patient is a 31-year-old gentleman with history of polysubstance abuse presenting with fever and chills as well as nodular swellings involving both forearms 1. Cellulitis and abscesses involving both forearms with methicillin sensitive staph aureus ?In a patient with IVDA. Patient has been admitted to regular nursing floor broad-spectrum antibiotic therapy with Zosyn clindamycin and vancomycin initiated consult placed to Dr. Hudson with plastic surgery from the ED -09/22/2021;Patient admitted to regular nursing floor broad-spectrum antibiotic therapy initiated on admission. Patient still complains of excruciating pain involving both forearms. Patient was seen and evaluated by Dr. Fischer, with plans for patient to undergo I&D ?09/23/2021;Patient underwent I&D by Dr. Fischer on 09/22/2021. Seen this a.m. still complains of some discomfort. ?09/24/2021;Patient seen complains of pain in both upper extremities. Wound cultures so far positive for methicillin sensitive staph aureus subsequently adjusted antibiotic therapy with discontinuation of vancomycin 2. Acute cystitis ?Patient is on antibiotics ?09/22/2021; on broad-spectrum antibiotic therapy urine cultures pending ?09/23/2021; urine cultures did not exhibit any growth 3. Polysubstance abuse ?Patient was counseled on cessation 4. Recent COVID-19 infection ?Currently stable not requiring any supplemental oxygen 5. Elevated D-dimer ?Related to recent COVID-[address] of the chest obtained was negative for PE 6. Tobacco dependence - Counseled on cessation, offered nicotine patch for tobacco cravings 7. History of hep C ?Patient to follow-up with PCP for subsequent care 8. DVT prophylaxis - On enoxaparin 9. Mild hyponatremia ?Do suspect case of SIADH from severe pain we will continue with monitoring of electrolyte 10. Anemia - Secondary to chronic disorder monitoring H&H and transfuse if patient becomes symptomatic or hemoglobin falls below 7 Charges/Coding Visit Charges Inpatient E&M: 07163 Subs Hosp L2
[2021-09-24 08:09] LABS: Anion Gap 7 (5-15); BUN 6 mg/dL (7-18); BUN/Creat Ratio 7.8 RATIO (10-20); Calcium,Total 7.3 mg/dL (8.5-10.1); Chloride 102 mmol/L (98-107); Creatinine, Serum 0.77 mg/dL (0.70-1.30); EST Glomerular Filtration Rate 125 mL/min (>60); Est Glom Filt Rate - Afr Amer 151 mL/min (>60); Estimated Creatinine Clearance 151.36 ml/min; Glucose 89 mg/dL (74-106); Potassium 3.7 mmol/L (3.5-5.1); Sodium Level 131 mmol/L (136-145)
[2021-09-24 09:18] VITALS: PULSE 80; RESP 20; O2SAT 98
[2021-09-24 09:25] VITALS: BP 104/64; PULSE 80; RESP 20; TEMP 36.6; O2SAT 98
[2021-09-24] MEDS: Enoxaparin 40 MG/0.4 ML Syringe SC (09:26)
[2021-09-24 11:07] LABS: Absolute Lymphocyte Count 2.51 X10^3/uL (0.83-4.51); Absolute Neutrophil Count 1.6 X10^3/uL (2.0-7.7); Basophil# 0.04 X10^3/uL; Basophil% 0.9 % (0-1); Eosinophil# 0.07 X10^3/uL; Eosinophils% 1.6 % (0-5); Hematocrit 24.5 % (40-54); Hemoglobin 8.3 g/dL (13.0-16.5); Lymphocyte # 2.51 X10^3/ul (0.83-4.51); Lymphocyte % 55.7 % (19-41); Mean Corp Hgb Conc 33.9 g/dL (32-36); Mean Corpuscular Hgb 29.1 pg (27.0-32.0); Mean Platelet Vol. 11.6 fl (6.2-12.0); Monocyte# 0.22 X10^3/uL; Monocyte% 4.9 % (0-10); NRBC Flagged by Analyzer 0 % (0-5); Neutrophil # 1.62 X10^3/uL (2.7-7.7); Neutrophil % 35.8 % (47-70); POSITIVE COUNT YES; POSITIVE MORPHOLOGY YES; Platelet Count 117 K/mm3 (150-450); RBC Distribution Width CV 16.8 % (11.6-14.6); RBC Distribution Width SD 52.2 fl (35.1-43.9); Red Blood Count 2.85 M/mm3 (4.6-6.2); White Blood Count 4.5 K/mm3 (4.4-11.0)
[2021-09-24 11:08] LABS: Differential Indicated SCAN CRITERIA MET
[2021-09-24 11:30] LABS: Differential Comment SCANNED
[2021-09-24 11:31] LABS: Reactive Lymphocyte 1+
[2021-09-24] MEDS: Cefazolin 1 GM/50 ML BAG IV ×2 (14:22→20:40)
[2021-09-24 15:00] VITALS: PULSE 100; RESP 20; O2SAT 98
[2021-09-24 15:30] VITALS: BP 109/66; PULSE 100; RESP 20; TEMP 37.7; O2SAT 98
[2021-09-24] MEDS: 0.9% Normal Saline 1,000 ML 60 ML IV ×2 (15:54→20:40)
--- NOTE | 2021-09-24 17:46 | PN.SURG_ITS ---
Subjective Subjective Postop #2 Patient resting comfortably. Tolerated the dressing change reasonably well. Objective Data Objective Data Vital Signs: Vital Signs Temp Pulse Resp BP Pulse Ox 99.9 F H 100 20 H 109/66 98 09/24/21 15:30 09/24/21 15:30 09/24/21 15:30 09/24/21 15:30 09/24/21 15:30 Oxygen Delivery Method Room Air Weight: 171 lb 4.787 oz Body Mass Index (BMI) 22.6 Intake & Output: Intake and Output for Last 24 Hours 09/22/21 09/23/21 09/24/21 23:59 23:59 23:59 Intake Total 3248.00 / 3248.00 5435.33 / 5835.33 3465 / 3465 Output Total 0 / 0 1375 / 1975 3600 / 3600 Balance 3248.00 / 3248.00 4060.33 / 3860.33 -135 / -135 Medical Nutrition Assessment Dietitian: Malnutrition Criteria Met Start: 09/22/21 11:00 Freq: Status: Active Protocol: Document 09/22/21 11:[address] [facility] (Rec: 09/22/21 11:[address] [facility] [id number]) Nutrition Malnutrition Evidence of Malnutrition Exists Yes Malnutrition (severe): Acute Illness/Injury Evidenced By Suboptimal Energy Intake ( Severe),Weight Loss (Severe), Physical Changes (Moderate) Clinical Problem Acute Disease or Injury Related Malnutrition Etiology related to covid 19 last month and inability to consume adequate nutrition to meet pt est nutritional needs Signs/Symptoms as evidenced by <50% po intake and 22.2% wt loss in past month and fat/muscle loss to face and upper body. Status Active Problem Recommendation Dietitian Recommendations/Changes As medically able, rec diet as tolerated to regular with 120 ml ensure compact with medpass 4x/day Lab / Micro Data Attestation: I reviewed the patient's lab results. Result Diagrams: 09/25/21 14:50 09/25/21 14:50 Labs: Laboratory Results - last 24 hr 09/24/21 07:40: WBC Cancelled, Corrected WBC Cancelled, RBC Cancelled, Hgb Cancelled, Hct Cancelled, MCV Cancelled, MCH Cancelled, MCHC Cancelled, RDW Std Deviation Cancelled, RDW Coeff of Dennis Cancelled, Plt Count Cancelled, MPV Cancelled, Immature Gran % (Auto) Cancelled, Neut % (Auto) Cancelled, Lymph % (Auto) Cancelled, [place] % (Auto) Cancelled, Eos % (Auto) Cancelled, Baso % (Auto) Cancelled, Absolute Neuts (auto) Cancelled, Absolute Lymphs (auto) Cancelled, Total Counted Cancelled, Neutrophils % (Manual) Cancelled, Band Neutrophils % Cancelled, Lymphocytes % (Manual) Cancelled, Monocytes % (Manual) Cancelled, Eosinophils % (Manual) Cancelled, Basophils % (Manual) Cancelled, Metamyelocytes % Cancelled, Myelocytes % Cancelled, Promyelocytes % Cancelled, Blast Cells % Cancelled, Plasma Cell % (Manual) Cancelled, Other Cells % Cancelled, Nucleated RBC % Cancelled, Nucleated RBCs/100 WBC Cancelled, Differential Comment Cancelled, Diff Path Review Cancelled, Hypersegmented Neuts Cancelled, Atypical Lymphocytes Cancelled, Reactive Lymphocytes Cancelled, Smudge Cells Cancelled, Toxic Granulation Cancelled, Toxic Vacuolation Cancelled, Dohle Bodies Cancelled, Godfrey Rods Cancelled, Platelet Estimate Cancelled, Plt Morphology Comment Cancelled, RBC Morphology Cancelled, Polychromasia Cancelled, Hypoch romasia Cancelled, Poikilocytosis Cancelled, Basophilic Stippling Cancelled, Anisocytosis Cancelled, Microcytosis Cancelled, Macrocytosis Cancelled, Spherocytes Cancelled, Sickle Cells Cancelled, Target Cells Cancelled, Tear Drop Cells Cancelled, Ovalocytes Cancelled, Stomatocytes Cancelled, Selby-Hilbert Bodies Cancelled, Rashel Cells Cancelled, Bite Cells Cancelled, Crenated Cell Cancelled, Acanthocytes (Spur) Cancelled, Rouleaux Cancelled, Schistocytes Cancelled 09/24/21 07:40: Sodium 131 L, Potassium 3.7, Chloride 102, Carbon Dioxide 22.0, Anion Gap 7, BUN 6 L, Creatinine 0.77, Estim Creat Clear Calc 151.36, Est GFR (MDRD) Af Amer 151, Est GFR (MDRD) Non-Af 125, BUN/Creatinine Ratio 7.8 L, Glucose 89, Calcium 7.3 L 09/24/21 10:55: WBC 4.5, RBC 2.85 L, Hgb 8.3 L, Hct 24.5 L, MCV 86.0, MCH 29.1, MCHC 33.9, RDW Std Deviation 52.2 H, RDW Coeff of Dennis 16.8 H, Plt Count 117 L, MPV 11.6, Immature Gran % (Auto) 1.100 H, Neut % (Auto) 35.8 L, Lymph % (Auto) 55.7 H, [place] % (Auto) 4.9, Eos % (Auto) 1.6, Baso % (Auto) 0.9, Absolute Neuts (auto) 1.6 L, Absolute Lymphs (auto) 2.51, Nucleated RBC % 0, Differential Comment SCANNED, Reactive Lymphocytes 1+ Micro: Microbiology 09/22/21 16:40 Wound - Other Gram Stain - Final 09/22/21 16:40 Wound - Other Wound Culture - Preliminary Staphylococcus aureus 09/22/21 16:40 Wound - Other Gram Stain - Final 09/22/21 16:40 Wound - Other Wound Culture - Preliminary Staphylococcus aureus 09/21/21 06:55 Blood Culture (Wb) - Venous Blood Culture - Preliminary No growth in 48 hours. 09/21/21 06:50 Blood Culture (Wb) - Left Hand Blood Culture - Preliminary No growth in 48 hours. 09/21/21 06:55 Urine, Clean Catch Urine Culture - Preliminary Culture exhibits no growth. 09/21/21 06:49 Nasal Secretion SARS-CoV-2 Antigen (Rapid) - Final Physical Exam Narrative General - Alert and Oriented HEENT - PERRL. EOMI. Neck - Supple and nontender. Abdomen - Soft and nondistended. mExtremities - No axillary adenopathy. Radial pulses are palpable. There are two large wounds present on the volar ulnar aspect of the right forearm and the volar radial aspect of the left forearm.. The wounds are clean with some granulation tissue present. The muscles that are exposed are pink and viable. The right forearm wound measures 16.5 x 6 x 2 cm or 104 cm2. The left forearm wound measures 5.5 x 3.5 x 1.5 cm or 19.25 cm2. Neuro - CN II-XII grossly intact. Psych - Normal mood and affect. Assessment & Plan Assessment/Plan (1) Abscess of forearm, left: (2) Open wound of left forearm with complication: (3) Abscess of forearm, right: (4) Open wound of right forearm with complication: (5) History of intravenous drug abuse: (6) Methamphetamine abuse: (7) COVID-19: (8) Smoker: PLAN: Patient's incisions are healing satisfactory. The dressing changes are painful, but he tolerated reasonably well. They were dressed with Silver dressing changes. Continue Zosyn and Clindamycin. The Vancomycin was stopped. Operative cultures show Staphylococcus aureus thus far. Encourage range of motion exercises to minimize stiffness. Encourage nutritional supplementation with protein to help the healing process. Will need Home Health assist at discharge. Can also followup at the [facility] Center after discharge. We can see him on Mondays. Encouraged patient to stop smoking as it may have deleterious effects on wound healing.
[2021-09-24 21:30] VITALS: BP 116/76; PULSE 104; RESP 16; TEMP 37; O2SAT 98
[2021-09-25] MEDS: HYDROmorphone 1 MG/ML Syringe IV ×2 (00:26→06:11)
[2021-09-25 00:29] VITALS: PULSE 107
[2021-09-25 00:47] LABS: M R Staph aureus DNA By PCR Negative (Negative); Probe Check PASS; Specimen Processing Control PASS; Staph aureus DNA By PCR POSITIVE (Negative)
[2021-09-25 03:30] VITALS: BP 110/70; PULSE 100; RESP 16; TEMP 37.1; O2SAT 95
[2021-09-25] MEDS: 0.9% Normal Saline 1,000 ML 60 ML IV (06:07)
[2021-09-25] MEDS: Cefazolin 1 GM/50 ML BAG IV ×3 (06:07→21:25)
[2021-09-25 08:35] VITALS: BP 111/69; PULSE 104; RESP 16; TEMP 36.9; O2SAT 98
[2021-09-25] MEDS: Acetaminophen 325 MG Tablet 650 MG PO (08:43)
[2021-09-25] MEDS: oxyCODONE 5 MG Tablet PO ×2 (08:43→13:27)
[2021-09-25] MEDS: Enoxaparin 40 MG/0.4 ML Syringe SC (08:44)
--- NOTE | 2021-09-25 09:45 | WOUNDNOTE ---
wound photo: right lateral forearm
--- NOTE | 2021-09-25 09:45 | WOUNDNOTE ---
wound photo: left forearm
--- NOTE | 2021-09-25 10:19 | CASEMGMT ---
Addendum entered by Ivy Mitchell 09/25/21 15:33: RHIANNON CM in to pt room to make aware of C set up. Pt is aware that he will have to obtain the supplies prior to them arriving for visits at any pharmacy. He is aware of frequency that the agency plans to see him and states his aunt will be able to complete dressings other days. He denies further questions. Addendum entered by Ivy Mitchell 09/25/21 13:20: Received tc back from [facility], they do not accept pt insurance. Nader gave another [place] agency, [facility]. TC to [facility] and faxed referral. TC to follow up. They can accept referral for visits 1-2x/wk. Original Note: TC to [facility], left message with Nader regarding referral. Faxed referral as well.
--- NOTE | 2021-09-25 11:47 | PN.HOSP_ITS ---
Subjective Subjective Follow-up on bilateral upper extremity abscesses/wound/cellulitis Patient was seen and examined. No new complaints. His aunt is coming to learn how to do daily wound dressings tomorrow. Discharge will be with home health care Objective Data Objective Data Vital Signs: Vital Signs Temp Pulse Resp BP Pulse Ox 98.5 F 104 H 16 111/69 98 09/25/21 08:35 09/25/21 08:35 09/25/21 08:35 09/25/21 08:35 09/25/21 08:35 Oxygen Delivery Method Room Air Weight: 77.7 kg Body Mass Index (BMI) 22.6 Intake & Output: Intake and Output for Last 24 Hours 09/23/21 09/24/21 09/25/21 23:59 23:59 23:59 Intake Total 5435.33 / 5835.33 4201 / 4201 1317 / 1317 Output Total 137 / 1974 3900 / 3900 1974 / 1974 Balance 4060.33 / 3860.33 301 / 301 -658 / -658 Medical Nutrition Assessment Dietitian: Malnutrition Criteria Met Start: 09/22/21 11 :00 Freq: Status: Active Protocol: Document 09/22/21 11:01 [facility] (Rec: 09/22/21 11:01 [facility] [id number]) Nutrition Malnutrition Evidence of Malnutrition Exists Yes Malnutrition (severe): Acute Illness/Injury Evidenced By Suboptimal Energy Intake ( Severe),Weight Loss (Severe), Physical Changes (Moderate) Clinical Problem Acute Disease or Injury Related Malnutrition Etiology related to covid 19 last month and inability to consume adequate nutrition to meet pt est nutritional needs Signs/Symptoms as evidenced by <50% po intake and 22.2% wt loss in past month and fat/muscle loss to face and upper body. Status Active Problem Recommendation Dietitian Recommendations/Changes As medically able, rec diet as tolerated to regular with 120 ml ensure compact with medpass 4x/day Lab / Micro Data Result Diagrams: 09/24/21 10:55 09/24/21 07:40 Labs: Laboratory Results - last 24 hr 09/24/21 17:30: S.aureus Protein A PCR POSITIVE H, MRSA (PCR) Negative Micro: Microbiology 09/22/21 16:40 Wound - Other Gram Stain - Final 09/22/21 16:40 Wound - Other Wound Culture - Final Staphylococcus aureus 09/22/21 16:40 Wound - Other Anaerobic Culture - Final No anaerobic bacteria isolated. 09/22/21 16:40 Wound - Other Gram Stain - Final 09/22/21 16:40 Wound - Other Wound Culture - Final Staphylococcus aureus 09/22/21 16:40 Wound - Other Anaerobic Culture - Final No anaerobic bacteria isolated. 09/21/21 06:55 Urine, Clean Catch Urine Culture - Final Actinomyces naeslundii 09/21/21 06:55 Blood Culture (Wb) - Venous Blood Culture - Preliminary No growth in 48 hours. 09/21/21 06:50 Blood Culture (Wb) - Left Hand Blood Culture - Preliminary No growth in 48 hours. 09/21/21 06:49 Nasal Secretion SARS-CoV-2 Antigen (Rapid) - Final Physical Exam Narrative Physical exam: General: Alert, Oriented x3, Cooperative, No apparent distress, Well developed HEENT: Atraumatic Oral: Moist Mucosa Neck: Supple Lungs: Clear to auscultation Cardiovascular: HS I+II, regular, no murmurs Abdomen: Bowel Sounds Present, Soft, Non Tender Extremities: Bilateral Moris wraps to upper extremities Assessment & Plan Assessment/Plan (1) Abscess of forearm, left: (2) Abscess of forearm, right: (3) Abscess of left elbow: (4) Severe malnutrition: PLAN: 1. Acute bilateral upper extremity MSSA abscesses/cellulitis/wounds Continue on cefazolin, plastic surgery consulted, following 2. Elevated D-dimer, acute PE ruled out with CTA of the chest 3. Nicotine dependence, on replacement 4. Polysubstance abuse, advised to quit 5. Recent COVID-19 infection, not on oxygen 6. Chronic hep C, needs to follow-up for treatment 7. Chronic hyponatremia, at baseline Charges/Coding Visit Charges Inpatient E&M: 32097 Subs Hosp L2
[2021-09-25 13:33] VITALS: BP 121/74; PULSE 92; RESP 16; TEMP 36.6; O2SAT 96
[2021-09-25] MEDS: 0.9% Saline Lock 10 ML Syringe IV (14:53)
[2021-09-25 15:09] LABS: Absolute Lymphocyte Count 2.56 X10^3/uL (0.83-4.51); Absolute Neutrophil Count 1.3 X10^3/uL (2.0-7.7); Basophil# 0.03 X10^3/uL; Basophil% 0.7 % (0-1); Eosinophil# 0.11 X10^3/uL; Eosinophils% 2.6 % (0-5); Hematocrit 26.8 % (40-54); Lymphocyte # 2.56 X10^3/ul (0.83-4.51); Lymphocyte % 59.8 % (19-41); Mean Corp Hgb Conc 33.6 g/dL (32-36); Mean Corpuscular Hgb 29.1 pg (27.0-32.0); Mean Corpuscular Volume 86.7 fL (80-94); Mean Platelet Vol. 11.9 fl (6.2-12.0); Monocyte# 0.26 X10^3/uL; Monocyte% 6.1 % (0-10); NRBC Flagged by Analyzer 0 % (0-5); Neutrophil # 1.27 X10^3/uL (2.7-7.7); Neutrophil % 29.6 % (47-70); POSITIVE MORPHOLOGY YES; Platelet Count 137 K/mm3 (150-450); RBC Distribution Width CV 16.5 % (11.6-14.6); RBC Distribution Width SD 51.8 fl (35.1-43.9); Red Blood Count 3.09 M/mm3 (4.6-6.2); White Blood Count 4.3 K/mm3 (4.4-11.0)
[2021-09-25 15:10] LABS: Differential Indicated SCAN CRITERIA MET
[2021-09-25 15:40] LABS: Anion Gap 6 (5-15); BUN 9 mg/dL (7-18); BUN/Creat Ratio 13.9 RATIO (10-20); Calcium,Total 7.7 mg/dL (8.5-10.1); Chloride 103 mmol/L (98-107); Creatinine, Serum 0.65 mg/dL (0.70-1.30); EST Glomerular Filtration Rate 152 mL/min (>60); Est Glom Filt Rate - Afr Amer 184 mL/min (>60); Estimated Creatinine Clearance 179.31 ml/min; Glucose 82 mg/dL (74-106); Potassium 4.1 mmol/L (3.5-5.1); Sodium Level 137 mmol/L (136-145)
[2021-09-25 15:44] LABS: Anisocytosis RARE; Atypical Lymphocyte 2+ %; Hypochromasia RARE; Platelet Estimate SLT DEC (ADEQ); Red Cell Morphology N CHROM NORMAL (NORM C&C)
--- NOTE | 2021-09-25 16:01 | NURSING ---
Pt resting in bed. denies needs at this time.
[2021-09-25] MEDS: Juven (unflavored) Packet 1 PACKET PO (17:04)
[2021-09-25 17:30] VITALS: BP 112/72; PULSE 94; RESP 16; TEMP 36.8; O2SAT 98
[2021-09-25 21:33] VITALS: BP 126/68; PULSE 101; RESP 16; TEMP 37; O2SAT 96
[2021-09-26 03:33] VITALS: BP 110/69; PULSE 105; RESP 16; TEMP 37; O2SAT 98
[2021-09-26] MEDS: Cefazolin 1 GM/50 ML BAG IV (05:13)
[2021-09-26] MEDS: Juven (unflavored) Packet 1 PACKET PO (07:42)
[2021-09-26] MEDS: oxyCODONE 5 MG Tablet PO ×2 (07:42→13:40)
--- NOTE | 2021-09-26 08:06 | CASEMGMT ---
Addendum entered by Ivy Mitchell 09/26/21 12:21: TC to pt aunt Ana Cristina Kilpatrick. She states she does not feel that she needs to see the dressing be performed today as she watched this weekend. She is comfortable with this. She states she was told that the pt can follow up at a [facility] and that the dressing will be changed three times per week. Made her aware this CM will contact her back. TC to , he states dressing can be changed 3x/week. He is fine with the patient following at [facility] as well. RN CM in to pt room. Pt states [facility] is near his home and he can get transportation there. TC to [facility], their wound center is in [facility]. Searched for a close wound center to pt home. TC to [facility], spoke with Corry. She states to fax the information over and she will check with a physician to see if they are willing to accept pt. Faxed referral at this time. She states they are scheduling into next week and she will most likely not have an answer back today. TC to pt aunt. Explained to her that Beny is reviewing the patient's info and an answer will not be obtained today most likely. Will notify pt to follow up with this. She is aware for now, pt will follow with at the [facility] and an appt will need to be made. Per the , pt insurance may be able to provide him with transportation. She is aware that pt will need to call his insurance to verify this. She asks for the phone number for the insurance company. Will provide this number with the [facility]'s, [place] [facility] phone number on the dc instructions. Pt aunt is aware that the [facility] will come once a week for sure and possibly twice, this will be at their discretion, their goal is to teach family/friends how to complete dressing changes. She is also aware that the Wound Center will not complete all of the dressing changes either but are a supplement to the C and friend/family performing dressing changes. This information also given to the patient and faxed to [facility] agency. Addendum entered by Ivy Mitchell 09/26/21 11:22: TC to [facility] to make aware pt is to dc today. Left message on intake vm. Original Note: TC to [facility] to make aware pt did not d/c lastnight. Left message on intake vm.
[2021-09-26 09:19] VITALS: BP 124/83; PULSE 100; RESP 16; TEMP 36.7; O2SAT 98
[2021-09-26] MEDS: Enoxaparin 40 MG/0.4 ML Syringe SC (09:21)
[2021-09-26 12:40] LABS: Pathologist Review Reviewed
--- NOTE | 2021-09-26 13:06 | PCM.DC ---
Discharge Instructions Diet Discharge Diet: No restrictions Activity Discharge Activity: Return to Normal Activity Keep extremity elevated above heart level: Operative Extremity Dressing / Incision Call your doctor if your incision/area has: Continuous Slow Oozing, Sudden Increased Bleeding, Increased Pain/ Swelling, Increased Redness, Foul Smelling Discharge and Swelling at the incision site Call your doctor if you observe: Fever of 101 or Higher and Change in Color Change Dressing in: 1 day Remove Dressing in: 1 day Cleanse incision/area with: Keep Dressing Clean & Dry Follow Up Care Test Results: Test results from this visit will be discussed in further detail at your follow-up appointment, if applicable. Discharge Plan Admission Admit Date/Time: 09/21/21 10:18 Primary Reason for Your Visit: Bilateral extremity abscesses/cellulitis Attending Provider: Sherlyn Carlson Primary Care Provider: Keyanna Steven,Frannie Primary Consulting Providers: Gabriel Fischer Instructions Additional Instructions / Restrictions: Continue with the daily wound dressings as prescribed. Follow-up with facility in the outpatient and with wound center. Discharge Orders/Prescriptions Prescriptions: New oxycodone 5 mg Tablet 5 mg PO Q4H PRN PRN (Reason: Pain Score 6-10) 5 Days Qty: 20 RF: 0 cephalexin 500 mg capsule 500 mg PO TID 7 Days Qty: 21 RF: 0 Referrals / Follow Up: Care Physician,No Primary [Primary Care Provider] - Within 2 Weeks Gabriel Fischer MD [STAFF PHYSICIAN] - Within 2 Weeks Disposition Disposition (needs filled in before D/C Order can be placed): Home Health Service
--- NOTE | 2021-09-26 13:07 | DS.PCM_ITS ---
Providers Date of Admission: 09/21/21 Date of Discharge: 09/26/21 Primary Care Physician: Frannie Primary Care Phys Consultations 09/21/21 10:16 Consult: Plastic Surgery Routine Consulting Provider: Gabriel Fischer Reason for Consult: Bilateral upper extremity cellulitis EMERGENT Consult: Yes MD Notified: Yes Date Notified: 09/21/21 Time Notified: 10: Method of Notification: By emergency room 09/21/21 10:19 Consult: Onc/Wound/assistant district attorney Routine Comment: Reason For Visit: BILATERAL UPPER EXTREMITY CELLULITIS Diagnosis Discharge Diagnosis (1) Abscess of forearm, left: Status: Acute Code(s): L02.414 - Cutaneous abscess of left upper limb (2) Abscess of forearm, right: Status: Acute Code(s): L02.413 - Cutaneous abscess of right upper limb (3) Abscess of left elbow: Status: Acute Code(s): L02.414 - Cutaneous abscess of left upper limb (4) Severe malnutrition: Status: Acute Code(s): E43 - Unspecified severe protein-calorie malnutrition Medications at Discharge Home Medications cephalexin 500 mg PO TID 7 Days #21 cap 09/26/21 oxycodone 5 mg PO Q4H PRN PRN 5 Days #20 tab 09/26/21 Hospital Course Procedures None Summary of Care Provided Minutes Spent on Discharge: 45 Hospital Course: 31-year-old male with past medical history of polysubstance use disorder who comes in with swelling to both upper extremities. Patient admitted to methamphetamine injection both upper extremities. He was recently diagnosed with COVID-19 infection. He presented with cellulitis and abscesses of the upper extremities. He was started on IV antibiotics. Plastic surgery was consulted. He underwent I&D on 09/22/21. His wound cultures grew MSSA. He was continued on IV cefazolin. He continued to improve. He was discharged on Keflex to complete 1 week of treatment. Patient to follow- up with the wound center within 1 week. He will also follow-up with Dr. Fischer within 1 to 2 weeks. Physical Exam Narrative Physical exam: General: Alert, Oriented x3, Cooperative, No apparent distress, Well developed HEENT: Atraumatic Oral: Moist Mucosa Neck: Supple Lungs: Clear to auscultation Cardiovascular: HS I+II, regular, no murmurs Abdomen: Bowel Sounds Present, Soft, Non Tender Extremities: Bilateral Moris wraps to upper extremities Medical Records Data Medical Nutrition Assessment Dietitian: Malnutrition Criteria Met Start: 09/22/21 11:00 Freq: Status: Active Protocol: Document 09/25/21 13:57 RMA (Rec: 09/25/21 13:58 RMA [id number]) Nutrition Malnutrition Evidence of Malnutrition Exists Yes Malnutrition (severe): Acute Illness/Injury Evidenced By Suboptimal Energy Intake ( Severe),Weight Loss (Severe), Physical Changes (Moderate) Intake Problem Increased Nutrient Needs (specify) Etiology for protein related to wound healing Signs/Symptoms as evidenced by open surgical wounds Status Active Problem Clinical Problem Acute Disease or Injury Related Malnutrition Etiology related to covid 19 last month and inability to consume adequate nutrition to meet pt est nutritional needs Signs/Symptoms as evidenced by <50% oral intake and 22.2% wt loss in past month and fat/muscle loss to face and upper body. Status Active Problem Recommendation Dietitian Recommendations/Changes Continue regular diet as ordered. Will add 120 ml ensure compact TID w/ meals. Will add [place] BID w/ medpass. Weight / BMI Weight Weight: 77.7 kg Body Mass Index (BMI) 22.6 ABG / Lab / Microbiology Data Result Diagrams: 09/25/21 14:50 09/25/21 14:50 Laboratory: Laboratory Results - last 24 hr 09/25/21 14:50: WBC 4.3 L, RBC 3.09 L, Hgb 9.0 L, Hct 26.8 L, MCV 86.7, MCH 29.1, MCHC 33.6, RDW Std Deviation 51.8 H, RDW Coeff of Dennis 16.5 H, Plt Count 137 L, MPV 11.9, Immature Gran % (Auto) 1.200 H, Neut % (Auto) 29.6 L, Lymph % (Auto) 59.8 H, [place] % (Auto) 6.1, Eos % (Auto) 2.6, Baso % (Auto) 0.7, Absolute Neuts (auto) 1.3 L, Absolute Lymphs (auto) 2.56, Nucleated RBC % 0, Diff Path Review Reviewed, Atypical Lymphocytes 2+, Platelet Estimate SLT DEC, RBC Mo rphology N CHROM, Hypochromasia RARE, Anisocytosis RARE 09/25/21 14:50: Sodium 137, Potassium 4.1, Chloride 103, Carbon Dioxide 28.0, Anion Gap 6, BUN 9, Creatinine 0.65 L, Estim Creat Clear Calc 179.31, Est GFR (MDRD) Af Amer 184, Est GFR (MDRD) Non-Af 152, BUN/Creatinine Ratio 13.9, Glucose 82, Calcium 7.7 L Microbiology: Microbiology 09/21/21 06:55 Blood Culture (Wb) - Venous Blood Culture - Final No growth in 5 days. 09/21/21 06:50 Blood Culture (Wb) - Left Hand Blood Culture - Final No growth in 5 days. 09/22/21 16:40 Wound - Other Gram Stain - Final 09/22/21 16:40 Wound - Other Wound Culture - Final Staphylococcus aureus 09/22/21 16:40 Wound - Other Anaerobic Culture - Final No anaerobic bacteria isolated. 09/22/21 16:40 Wound - Other Gram Stain - Final 09/22/21 16:40 Wound - Other Wound Culture - Final Staphylococcus aureus 09/22/21 16:40 Wound - Other Anaerobic Culture - Final No anaerobic bacteria isolated. 09/21/21 06:55 Urine, Clean Catch Urine Culture - Final Actinomyces naeslundii 09/21/21 06:49 Nasal Secretion SARS-CoV-2 Antigen (Rapid) - Final D/C Instructions Discharge Diet: No restrictions Keep extremity elevated above heart level: Operative Extremity Call your doctor if your incision/area has: Continuous Slow Oozing, Sudden Increased Bleeding, Increased Pain/ Swelling, Increased Redness, Foul Smelling Discharge and Swelling at the incision site Call your doctor if you observe: Fever of 101 or Higher and Change in Color Cleanse incision/area with: Keep Dressing Clean & Dry Meaningful Use Info Meaningful Use Diagnoses (Choose all that apply): None applicable Discharge Plan Admission Admit Date/Time: 09/21/21 10:18 Primary Reason for Your Visit: Bilateral extremity abscesses/cellulitis Attending Provider: Sherlyn Carlson Primary Care Provider: Care Physician,No Primary Consulting Providers: Gabriel Fischer Instructions Additional Instructions / Restrictions: Continue with the daily wound dressings as prescribed. Follow-up with facility in the outpatient and with wound center. Discharge Orders/Prescriptions Prescriptions: New oxycodone 5 mg Tablet 5 mg PO Q4H PRN PRN (Reason: Pain Score 6-10) 5 Days Qty: 20 RF: 0 cephalexin 500 mg capsule 500 mg PO TID 7 Days Qty: 21 RF: 0 Referrals / Follow Up: Gabriel Fischer MD [STAFF PHYSICIAN] - Within 2 Weeks Care Physician,No Primary [Primary Care Provider] - Within 2 Weeks Disposition Disposition (needs filled in before D/C Order can be placed): Home Health Service Charges/Coding Visit Charges Inpatient E&M: 84740 Disch Hosp
[2021-09-26 13:39] VITALS: BP 125/78; PULSE 107; RESP 16; TEMP 36.9; O2SAT 99
--- NOTE | 2021-09-26 14:23 | PHA.DC.MC ---
Pharmacy Service has performed discharge medication reconciliation and counseling for this patient. 1. CEPHALEXIN 500MG PO TID X 7 DAYS 2. OXYCODONE 5MG PO Q4H PRN PAIN 6-10 The patient's discharge medication list was reviewed for discrepancies and discrepancies were resolved. Home Medications cephalexin 500 mg PO TID 7 Days #21 cap 09/26/21 oxycodone 5 mg PO Q4H PRN PRN 5 Days #20 tab 09/26/21 The patient was counseled on the following discharge medications and changes in medications for homegoing were reviewed. The Reason for Use, instructions for use, and potential side effects were reviewed for all new medications. The patient's questions regarding all of their medications were answered. The patient was able to verbally demonstrate an understanding of their discharge medications.
== END 2021-09-26 15:15 | disposition home health service (06) | DRG 364 ==
LOC: ED 10:06 → MS3 12:06
PROVIDERS: Anesthesiology; Surgery; Admitting Provider Internal Medicine; Emergency Provider Emergency Medicine; Visit Provider Internal Medicine
PROC: 0KBB0ZZ Excision of Left Lower Arm and Wrist Muscle, Open Approach (ICD-10-PCS; principal; 2021-09-22 14:20)
DX: L02.414 Cutaneous abscess of left upper limb (principal); L02.413 Cutaneous abscess of right upper limb; L03.114 Cellulitis of left upper limb; L03.113 Cellulitis of right upper limb; N30.00 Acute cystitis without hematuria; F17.210 Nicotine dependence, cigarettes, uncomplicated; F15.10 Other stimulant abuse, uncomplicated; B95.61 Methicillin susceptible Staphylococcus aureus infection as the cause of diseases classified elsewhere; E87.1 Hypo-osmolality and hyponatremia; D64.9 Anemia, unspecified; B18.2 Chronic viral hepatitis C; Z86.16 Personal history of COVID-19
CPT/HCPCS: 36415; 71275; 73201; 80048; 80202; 80307; 81001; 82550; 83605; 84484; 85025; 85379; 85610; 85730; 87040; 87070; 87075; 87077; 87086; 87088; 87102; 87186; 87205; 87206; 87426; 87640; 87641; 88304; 88305; 93005; 97802; 97803; 99285; 99406; J7030; J7040; J7050; Q9967; A4216; J2405

== ENCOUNTER 2022-01-16 00:15 | Emergency (ER) | payer MEDICAID, SELFPAY ==
[2022-01-16 00:16] VITALS: BP 143/79; PULSE 123; RESP 16; TEMP 36.8; O2SAT 99; BMI 25.9
[2022-01-16 00:27] VITALS: BP 126/81; PULSE 118; O2SAT 99
--- NOTE | 2022-01-16 00:28 | EX.ED.DYSGE1 ---
HPI History of Present Illness Chief Complaint: Cellulitis Informant: patient Onset/Context/Timing Onset: Weeks Current Severity: Mild Maximum Severity: Moderate Narrative Narrative: Patient presents with what he is concerned to be cellulitis of his lower extremities. He reports wounds over his anterior shins that been ongoing for at least a month. He states he had increased pain recently. He does note some skin discoloration around the area. He reports a clear watery discharge. He denies fever or chills. Patient was admitted in September with cutaneous abscesses and cellulitis to his upper extremities. He required surgery. He does note a swollen area on the back of his right hand for the past 2 weeks. He does admit to IV drug use but states he is trying to quit. [facility] Medical History Abscess of forearm, left Abscess of forearm, right Anxiety Broken teeth COVID-19 Drug abuse and dependence GI bleed Hepatitis C History of intravenous drug abuse HIV (human immunodeficiency virus infection) Methamphetamine abuse Smoker Substance abuse Home Medications cephalexin 500 mg PO TID 7 Days #21 cap 09/26/21 [Rx Last Taken Unknown] oxycodone 5 mg PO Q4H PRN PRN 5 Days #20 tab 09/26/21 [Rx Last Taken Unknown] doxycycline monohydrate 100 mg PO BID #20 cap 01/16/22 [Rx Last Taken Unknown] Allergy/AdvReac Type Severity Reaction Status Date / Time No Known Allergies Allergy Verified 01/16/22 00:16 Family History Mother Hypertension Social History Smoking Status: Current every day smoker tobacco type: cigarettes ROS ROS ED Constitutional Constitutional ED: Denies chills or fever(s) Eyes Eyes: Denies change in vision ENT ENT ED: Denies sore throat Cardiovascular Cardiovascular: Denies chest pain Respiratory/Chest Respiratory/Chest: Denies cough or dyspnea Gastrointestinal Gastrointestinal: Denies abdominal pain, nausea or vomiting Genitourinary Genitourinary ED: Denies dysuria Musculoskeletal Musculoskeletal: Reports myalgias; Denies back pain Integumentary Reports abscess; Denies rash Neurologic Neurologic: Denies headache(s) Allergic/Immunologic Allergic/Immunologic ED: Denies urticaria EXAM Physical Exam Const Vital Signs: 01/16/22 00:16 01/16/22 00:27 01/16/22 02:28 Temperature 98.3 F Temperature Source Oral Pulse Rate 123 H 118 H 118 H Respiratory Rate 16 Blood Pressure 143/79 H 126/81 H 119/93 H Blood Pressure Mean 100 96 Pulse Ox 99 99 Oxygen Delivery Method Room Air Positive well nourished and well developed General Appearance ED: well developed HEENT Reports moist mucous membranes Eyes PERRL and EOMs intact bilaterally Neck supple Chest Wall inspection of chest normal Resp normal respiratory effort and clear to auscultation bilaterally Cardio regular rate and regular rhythm GI non-tender Palpation: soft Extremity Extremity Narrative: What appears to be healing abscesses are noted on the lower extremities. There are 2 on the right oliveira and one in the left oliveira. There is surrounding chronic venous skin changes. I do not see sign of acute cellulitis at this time. He does have a 2 and half centimeter diameter soft abscess noted over the back of the right hand. Full range of motion of all digits. Neuro oriented x3 Sensorium / Orientation: alert Psych mental status grossly normal MDM MDM MDM Narrative Medical decision making narrative: Given patient's history initially ordered lab work and cultures. Multiple attempts were made by multiple nurses to get blood and/or IV access without success. I discussed with the patient that my primary concern would be to rule out a blood clot as he to has had increased pain in his lower legs with swelling. He appears to have chronic slowly healing wounds on his lower extremities I do not appreciate significant cellulitis at this time. I will treat him with a course of doxycycline and have him return tomorrow for an ultrasound of his legs. He voices understanding and agreement with this plan. Discharge Plan Triage Chief Complaint: Cellulitis ED Provider: Yvonne Ashton Dx/Rx/DC Orders Clinical Impression: Leg edema, Chronic wound of extremity Instructions: ED Peripheral Edema, Bilateral, ED Wound Care Prescriptions: New doxycycline monohydrate 100 MG capsule 100 mg PO BID Qty: 20 RF: 0 No Action oxycodone 5 mg Tablet 5 mg PO Q4H PRN PRN (Reason: Pain Score 6-10) 5 Days Qty: 20 RF: 0 cephalexin 500 mg capsule 500 mg PO TID 7 Days Qty: 21 RF: 0 Other Ambulatory Orders: Venous Duplex US - [place] Extrem (Routine) Facility: [facility] - Location: [facility] Ordered By: Dr. Yvonne Ashton ON-CALL NEEDED: Notify [facility] - Doppler Study Ordered (Stat) Location: None Selected Ordered By: Dr. Yvonne Ashton Primary Care Provider: Care Physician,No Primary Referrals: Marcell Zhang MD [STAFF PHYSICIAN] - As Needed Care Physician,No Primary [Primary Care Provider] - Disposition Disposition: Home, Self Care Discharge Date/Time: 01/16/22 02:37
[2022-01-16 02:28] VITALS: BP 119/93; PULSE 118
--- NOTE | 2022-01-16 02:28 | ED.RN ---
multiple nurses each with multiple attempts failed to obtain blood samples & iv access. dr aundrea goodwin. dc'd orders.
[2022-01-16] MEDS: Doxycycline 100 MG CAPSULE PO (02:36)
== END 2022-01-16 02:37 | disposition home or self-care (01) ==
PROVIDERS: Emergency Provider Emergency Medicine; Visit Provider Emergency Medicine
DX: R60.0 Localized edema (principal); Z21 Asymptomatic human immunodeficiency virus [HIV] infection status; F17.210 Nicotine dependence, cigarettes, uncomplicated; Z86.16 Personal history of COVID-19
CPT/HCPCS: 99283; A4216

== ENCOUNTER 2022-12-28 00:26 | Emergency (ER) | payer MEDICAID, SELFPAY ==
[2022-12-28 00:27] VITALS: BP 121/78; PULSE 90; RESP 16; TEMP 36.8; O2SAT 100; BMI 21.9
--- NOTE | 2022-12-28 00:54 | EDS_ITS ---
HPI History of Present Illness Chief Complaint: General Illness Narrative Narrative: 32-year-old male with HIV and opioid and methamphetamine abuse history presenting with left shoulder pain. He says that in the left upper chest wall and into the scapula. He states it feels better when he holds his arm upward and keeps his left shoulder abducted. He denies any trauma. He states it feels somewhat like a spasm. He states he is feeling somewhat short of breath with this, but he holds his arm up in that position and no shortness of breath feels like it goes away. Patient states that he does feel like he has a rattle in his chest as well. He denies fever, chills, sweats. He states he has chronic nausea and vomiting and this is causing him to have severe malnutrition. He states that he lives in an apartment alone and he does not have transportation so he has not made follow-up with anybody regarding his situation. He states he is going to court next week because he might be evicted. He currently is not homeless. He states he was recently told that he could use his Medicaid to get transportation to doctors offices. He states he has not looked into it further. Patient does state that he has not done meth or fentanyl for 2 days and is not sure if this has anything to do with his symptoms. [facility] Medical History Abscess of forearm, left Abscess of forearm, right Anxiety Broken teeth COVID-19 Drug abuse and dependence GI bleed Hepatitis C History of intravenous drug abuse HIV (human immunodeficiency virus infection) Methamphetamine abuse Smoker Substance abuse Home Medications NK 12/28/22 [History Last Taken Unknown] Allergy/AdvReac Type Severity Reaction Status Date / Time No Known Allergies Allergy Verified 12/28/22 00:31 Family History Mother Hypertension Social History Smoking Status: Current every day smoker tobacco type: cigarettes ROS ROS ED Constitutional Constitutional ED: Denies chills or fever(s) Eyes Eyes: Denies change in vision or diplopia ENT ENT ED: Denies rhinorrhea or sore throat Cardiovascular Cardiovascular: Reports chest pain Respiratory/Chest Respiratory/Chest: Reports dyspnea Gastrointestinal Gastrointestinal: Denies abdominal pain Genitourinary Genitourinary ED: Denies dysuria or hematuria Musculoskeletal Musculoskeletal: Reports other Details: Left shoulder pain ; Denies neck pain Integumentary Denies abscess Neurologic Neurologic: Denies headache(s) or paresthesias EXAM Physical Exam Const Vital Signs: 12/28/22 00:27 12/28/22 01:43 12/28/22 03:24 Temperature 98.2 F Temperature Source Temporal Pulse Rate 90 82 Respiratory Rate 16 16 Blood Pressure 121/78 H Blood Pressure Mean 92 Pulse Ox 100 100 Oxygen Delivery Method Room Air Room Air Room Air Positive unkempt General Appearance ED: unkempt and NAD; Negative for pallor HEENT Reports dry mucous membranes Negative for trauma Mouth ED: Yes dry mucous membranes Mouth: dry mucous membranes Eyes PERRL and EOMs intact bilaterally Resp normal respiratory effort and clear to auscultation bilaterally Auscultation: Negative for rales, rhonchi or wheezes Cardio regular rate and regular rhythm GI normal to inspection, nondistended, normoactive bowel sounds Extremity Extremity Narrative: Tenderness to palpation of the left scapula and left trapezius region. Patient holds his arm in abduction with his elbow flexed and hand next to the shoulder. He is able to lower this but he states that causes more spasm. Neurovascular intact. No deformity. Neuro oriented x3 and CN's II-XII intact bilaterally Sensorium / Orientation: alert Motor Exam: strength 5/5 throughout Psych Appearance: unkempt Skin General Skin Exam: Negative for jaundice or pallor MDM MDM MDM Narrative Medical decision making narrative: Patient presenting with left shoulder pain radiating to the chest. He states he feels like a muscle spasm. He also relates to me he is detoxing himself from fentanyl and methamphetamine at home and this may be a symptom. He is able to range the left shoulder without any difficulty but he likes to hold it up in the abducted position with the elbow flexed with the hand neck to the chest. He also states he feels short of breath when he puts his arm down. Lungs are clear to auscultation bilaterally. Heart regular rate and rhythm without murmur. HEART score of 1. Differential includes but is not limited to ACS, PE, aortic dissection, pneumonia, Boerhaave's, pneumothorax, muscle strain, muscle spasm, costochondritis. I have a low suspicion for ACS given his range of symptoms but I did obtain an EKG which on my interpretation shows a normal sinus rhythm without significant change. Chest x-ray was obtained as well and there is no evidence of acute cardiopulmonary process. Also no evidence of pneumonia, pneumothorax. Patient is PERC negative so of low special for PE. No widened mediastinum to suggest dissection and his pain distribution is not consistent. He does have chronic nausea and vomiting but is currently comfortable I do not believe he has Boerhaave's. This is likely muscle strain/spasm which may be consistent with his detoxing himself at home. CBC obtained shows no leukocyt osis. Hemoglobin hematocrit are stable. Platelets are low at 73. They are usually just over 100. Renal function and electrolytes appear to be normal. Glucose within normal limits. High-sensitivity troponin is 4. Patient was given a liter of normal saline. On reevaluation he has his arm to his side and feels improved. At this point the patient states he wants me to check his urine because he is having urinary symptoms. Urinalysis negative. At this point patient is stable for discharge. I do not believe he needs any more blood work or imaging. I suspect he may have symptoms of withdrawal that could be causing this versus muscle strain. Recommended Tylenol and ibuprofen in alternating doses. Patient does not want detox. Impression: 1. Left shoulder strain 2. Atypical chest pain 3. Dysuria unknown cause Lab Data Attestation: I reviewed the patient's lab results. Labs: Laboratory Results - last 24 hr 12/28/22 12/28/22 12/28/22 01:40 01:40 03:28 WBC 4.4 RBC 4.09 L Hgb 11.6 L Hct 33.7 L MCV 82.4 MCH 28.4 MCHC 34.4 RDW Std Deviation 43.2 RDW Coeff of Dennis 14.6 Plt Count 73 L MPV 13.4 H Immature Gran % (Auto) 0.200 Neut % (Auto) 70.2 H Lymph % (Auto) 20.4 [place] % (Auto) 8.5 Eos % (Auto) 0.5 Baso % (Auto) 0.2 Absolute Neuts (auto) 3.1 Absolute Lymphs (auto) 0.89 Nucleated RBC % 0 Differential Comment SCANNED Platelet Estimate MOD DEC Plt Morphology Comment LARGE Sodium 136 Potassium 3.8 Chloride 105 Carbon Dioxide 24.0 Anion Gap 7 BUN 9 Creatinine 0.73 Estim Creat Clear Calc 153.70 Est GFR (MDRD) Af Amer 159 Est GFR (MDRD) Non-Af 131 BUN/Creatinine Ratio 12.4 Glucose 91 Calcium 8.8 Troponin I High Sens 4 Urine Color Yellow Urine Clarity Clear Urine pH 8.0 Ur Specific [place] 1.010 Urine Protein 15 H Urine Glucose (UA) Normal Urine Ketones Negative Urine Occult Blood Negative Urine Nitrite Negative Urine Bilirubin Negative Urine Urobilinogen 1 H Ur Leukocyte Esterase 100 H Urine RBC 0-5 SEEN Urine WBC 5-10 SEEN Ur Squamous Epith Cells 0-5 SEEN Urine Bacteria 1+ Urine Mucus 0 SEEN Radiography Diagnostic Testing: Clinical Impression(s) from Imaging Studies Chest X-Ray 12/28/22 01:19 IMPRESSION: No acute cardiopulmonary disease. Electronically Signed: Alan Rush MD at 2:56 EST , Shoulder X-Ray 12/28/22 01:19 IMPRESSION: No acute findings in the left shoulder. Electronically Signed: Ирина Lopez MD at 2:57 EST , Discharge Plan Triage Chief Complaint: General Illness ED Provider: Jose Ayala Dx/Rx/DC Orders Instructions: ED Chest Pain, Noncardiac, ED Dysuria Uncertain Cause Ch, ED Shoulder Pain, Uncertain Cause Prescriptions: No Action NK Primary Care Provider: Care Physician,No Primary Referrals: [facility] [Outside] - 3-5 Days Care Physician,No Primary [Primary Care Provider] - Disposition Disposition: Home, Self Care
--- NOTE | 2022-12-28 01:19 | RAD_ITS ---
EXAM: XR LEFT SHOULDER COMPLETE, 2 OR MORE VIEWS CLINICAL INDICATION: pain TECHNIQUE: Two or more views of the left shoulder. This report was created using [employer] report generation technology. COMPARISON: None. FINDINGS: BONES/JOINTS: Scapular Y views x2, frontal portable view. No acute fracture. No subluxation. Normal alignment. Preservation of the joint space. No sclerotic or destructive changes observed. SOFT TISSUES: Unremarkable. No soft tissue swelling or gas. No radiopaque foreign body. RAD/Shoulder min 2 Views IMPRESSION: No acute findings in the left shoulder. Electronically Signed: Ирниа Lopez MD at 2:57 EST ,
--- NOTE | 2022-12-28 01:19 | RAD_ITS ---
INDICATION: chest pain EXAMINATION/TECHNIQUE: X-RAY - XR Chest 1 View COMPARISON: 09/21/2021 FINDINGS: LINES/DEVICES: None. LUNGS: No consolidation, edema or effusion. No pneumothorax. MEDIASTINUM AND CARDIOVASCULAR STRUCTURES: Cardiac silhouette not enlarged. Central airways and mediastinal contour are unremarkable. BONES AND SOFT TISSUES: Unremarkable. RAD/Chest 1 View (Portable) IMPRESSION: No acute cardiopulmonary disease. Electronically Signed: Alan Rush MD at 2:56 EST ,
[2022-12-28 01:48] LABS: Absolute Lymphocyte Count 0.89 X10^3/uL (0.83-4.51); Absolute Neutrophil Count 3.1 X10^3/uL (2.0-7.7); Basophil# 0.01 X10^3/uL; Basophil% 0.2 % (0-1); Eosinophil# 0.02 X10^3/uL; Eosinophils% 0.5 % (0-5); Hematocrit 33.7 % (40-54); Hemoglobin 11.6 g/dL (13.0-16.5); Lymphocyte # 0.89 X10^3/ul (0.83-4.51); Lymphocyte % 20.4 % (19-41); Mean Corp Hgb Conc 34.4 g/dL (32-36); Mean Corpuscular Hgb 28.4 pg (27.0-32.0); Mean Corpuscular Volume 82.4 fL (80-94); Mean Platelet Vol. 13.4 fl (6.2-12.0); Monocyte# 0.37 X10^3/uL; Monocyte% 8.5 % (0-10); NRBC Flagged by Analyzer 0 % (0-5); Neutrophil # 3.07 X10^3/uL (2.7-7.7); Neutrophil % 70.2 % (47-70); POSITIVE COUNT YES; Platelet Count 73 K/mm3 (150-450); RBC Distribution Width CV 14.6 % (11.6-14.6); RBC Distribution Width SD 43.2 fl (35.1-43.9); Red Blood Count 4.09 M/mm3 (4.6-6.2); White Blood Count 4.4 K/mm3 (4.4-11.0)
[2022-12-28] MEDS: 0.9% Normal Saline 1,000 ML 999 ML IV (01:53)
[2022-12-28 01:58] LABS: Differential Indicated SCAN CRITERIA MET
[2022-12-28 02:05] LABS: Anion Gap 7 (5-15); BUN 9 mg/dL (7-18); BUN/Creat Ratio 12.4 RATIO (10-20); Calcium,Total 8.8 mg/dL (8.5-10.1); Chloride 105 mmol/L (98-107); Creatinine, Serum 0.73 mg/dL (0.70-1.30); EST Glomerular Filtration Rate 131 mL/min (>60); Est Glom Filt Rate - Afr Amer 159 mL/min (>60); Glucose 91 mg/dL (74-106); Potassium 3.8 mmol/L (3.5-5.1); Sodium Level 136 mmol/L (136-145); Troponin-I HS (w/2H Reflex) 4 pg/mL (3.0-78.0)
[2022-12-28 02:13] LABS: Differential Comment SCANNED; Platelet Estimate MOD DEC (ADEQ)
[2022-12-28 02:14] LABS: Platelet Morphology LARGE
[2022-12-28 03:24] VITALS: PULSE 82; RESP 16; O2SAT 100
[2022-12-28 03:31] LABS: Color, Urine Yellow (Yellow); Glucose, Dipstick Normal (Normal); Ketone-Dipstick Negative (Negative); Leukocyte Esterase-Dipstick 100 /ul (Negative); Mucous, Urine 0 SEEN /hpf (<or=2+); Nitrite-Dipstick Negative (Negative); Occult Blood-Urine Negative /ul (Negative); Protein-Dipstick 15 mg/dl (Negative); Urine Bilirubin Dipstick Negative (Negative); Urine Clarity Clear (Clear); Urine Urobilinogen 1 mg/dl (Normal)
[2022-12-28 03:37] LABS: Bacteria 1+ /hpf (None Seen); Red Blood Cells-Urine 0-5 SEEN /hpf (0-5); Squamous Epithelial Cells - UA 0-5 SEEN /hpf (0-5); White Blood Cells 5-10 SEEN /hpf (0-5)
[2022-12-28 03:46] LABS: Reflex Troponin-HS? (from REC) Y
[2022-12-28 04:10] VITALS: BP 137/90; PULSE 86; RESP 16; O2SAT 100
== END 2022-12-28 04:11 | disposition home or self-care (01) ==
PROVIDERS: Emergency Provider Student in an Organized Health Care Education/Training Program; Visit Provider Student in an Organized Health Care Education/Training Program
DX: S46.912A Strain of unspecified muscle, fascia and tendon at shoulder and upper arm level, left arm, initial encounter (principal); Z21 Asymptomatic human immunodeficiency virus [HIV] infection status; R07.89 Other chest pain; R30.0 Dysuria; F17.210 Nicotine dependence, cigarettes, uncomplicated; Z86.16 Personal history of COVID-19; X58.XXXA Exposure to other specified factors, initial encounter
CPT/HCPCS: 93005; 99285; 80048; 84484; 85025; 73030; 81001; 71045; J7030; A4216

== ENCOUNTER 2022-12-28 07:07 | Inpatient (IN) | payer MEDICAID, SELFPAY ==
[2022-12-28 07:08] VITALS: BP 119/100; PULSE 96; RESP 18; TEMP 35.8; O2SAT 96; BMI 19.1
[2022-12-28] MEDS: traMADol 50 MG Tablet PO (07:39)
--- NOTE | 2022-12-28 07:52 | EDS_ITS ---
HPI History of Present Illness Chief Complaint: Suicidal Informant: patient Narrative Narrative: Patient presenting after discussing wanting help with detox and withdrawal from opioids. Long history of IV drug use from opioids along with methamphetamine use. Reporting last use was 2 days ago. He would use as much as he can from what he states, both saying he stopping because he is trying to detox along with running out of finances. He has history of cellulitis and abscess from days denies history of endocarditis or spine infections. Reports had nausea and vomiting, he was seen a few hours ago in the ED for reported right shoulder chest pain with a cardiac work-up that was negative. States he is feeling better he got home became more anxious with the spasm in his arms and he stated he just did not want to be around anymore. Reports due to symptoms of what he is feeling. From earlier records noted that he did not want detox when I discussed this with him, he stated that was not offered to him. He states he would like help. History of HIV per patient viral load over 100,000 reporting to me and CD4 around 400 last done October of last year. He states no transportation to get to his appointment as noted from his earlier visits. Prior similar symptoms: Yes [facility] Medical History (Updated 12/28/22 @ 15:[address] Wes Ocasio MD) Abscess of forearm, left Abscess of forearm, right Anxiety Broken teeth COVID-19 Drug abuse and dependence GI bleed Hepatitis C History of intravenous drug abuse HIV (human immunodeficiency virus infection) Methamphetamine abuse Smoker Substance abuse Syphilis Home Medications NK 12/28/22 [History Last Taken Unknown] Allergy/AdvReac Type Severity Reaction Status Date / Time No Known Allergies Allergy Verified 12/28/22 00:31 Family History Mother Hypertension Social History Smoking Status: Current every day smoker tobacco type: cigarettes ROS ROS ED Constitutional Constitutional ED: Denies chills, fever(s) or sweats Eyes Eyes: Denies change in vision ENT ENT ED: Denies dysphagia or sore throat Cardiovascular Cardiovascular: Denies chest pain, leg edema, palpitations or racing heartbeat Respiratory/Chest Respiratory/Chest: Denies cough, dyspnea or dyspnea on exertion Gastrointestinal Gastrointestinal: Denies abdominal pain, diarrhea, nausea or vomiting Genitourinary Genitourinary ED: Denies dysuria, hematuria or urinary frequency Musculoskeletal Musculoskeletal: Reports myalgias; Denies back pain, extremity pain or neck pain Integumentary Denies rash or wounds Neurologic Neurologic: Denies headache(s), paresthesias or weakness EXAM Physical Exam Const Vital Signs: 12/28/22 07:08 Temperature 96.5 F L Temperature Source Temporal Pulse Rate 96 Respiratory Rate 18 Blood Pressure 119/100 H Blood Pressure Mean 106 Pulse Ox 96 Oxygen Delivery Method Room Air Positive unkempt Constitutional Narrative: Not nontoxic General Appearance ED: unkempt HEENT Reports moist mucous membranes HEENT Narrative: Poor dentition normocephalic and atraumatic Eyes PERRL, EOMs intact bilaterally and conjunctivae normal General Eye ED: Yes normal appearance of both eyes Neck no lymphadenopathy and supple General: Negative for tenderness Chest Wall Chest Narrative: No rash or crepitus Chest: Negative for tenderness Resp normal respiratory effort and normal air movement Effort and Inspection: symmetric chest movement; Negative for respiratory distress Cardio regular rate, regular rhythm and no murmurs Peripheral Pulses: pulses 2+ throughout GI normal to inspection, nondistended, normoactive bowel sounds and non-tender Palpation: Negative for guarding or rebound tenderness present Back/Spine no CVA tenderness and no thoracic nor lumbar tenderness Extremity normal to inspection Extremity Narrative: Left shoulder: No rash no erythema no induration General Extremety ED: Negative for edema or tenderness General Extremity: Negative for edema Neuro oriented x3 and no sensory deficits noted Sensorium / Orientation: awake and alert Psych Appearance: unkempt Skin Skin Narrative: Previous scarring bilateral upper extremities, there is some scabbing right forearm. No indurations no drainage. MDM MDM MDM Narrative Medical decision making narrative: Interventions / MDM: Differential diagnosis: Opioid withdrawal, opioid dependence Diagnosis considered but do not suspect: N/A My EKG interpretation: N/A Imaging independently reviewed and interpreted by myself: N/A External documents reviewed: Reviewed ED records from earlier in previous inpatient records. Test considered but not ordered:N/A ED course: Patient nontoxic afebrile. After discussion he would like detox. Added alcohol and tox screen. With his symptoms he is given tramadol to help with withdrawal symptoms. There is no signs of infection of the skin in his chest or shoulder as he is complaining this for a year now. I spoke with hospitalist Dr. Howell, discussed his history reviewing medical records and he is admitted to medical floor for further inpatient management. Re-evaluation: stable, with tramadol symptoms are starting to improve per patient. Disposition discussed with patient/family/significant other: Patient Case discussed with consulting clinician: Hospitalist, Dr. Howell Lab Data Labs: Laboratory Results - last 24 hr 12/28/22 07:53 Urine Opiates Screen POSITIVE H Urine Methadone Screen NEGATIVE Ur Barbiturates Screen NEGATIVE Ur Phencyclidine Scrn NEGATIVE Ur Amphetamines Screen POSITIVE H MDMA (Ecstasy) Screen NEGATIVE U Benzodiazepines Scrn NEGATIVE Urine Cocaine Screen POSITIVE H U Cannabinoids Screen NEGATIVE Ur Drug Screen Comment Discharge Plan Dx/Rx/DC Orders Clinical Impression: Methamphetamine abuse, History of intravenous drug abuse, Opioid dependence Disposition Disposition: Acute Care Hospital [facility] Discharge Date/Time: 12/28/22 08:31
--- NOTE | 2022-12-28 08:01 | PCM.HP.STD ---
[facility] - General General Date of Admission: 12/28/22 Date of Service: 12/28/22 Chief Complaint: Polysubstance use, IV opioid and methamphetamine use. HPI Narrative MEME CORNEJO, is a 32 M with history of chronic opioid and methamphetamine use came to ED earlier after midnight today for general illness of left shoulder pain. Patient uses IV needle at multiple places and has scars in both upper extremity and has been using in shoulder, legs and up to groin. He has a scar tissue of previous incision and drainage both upper extremity during previous admission in September 2021. He also has history of HIV and hepatitis C. He denies fever chills. Earlier patient complained of mild chest pain shortness of breath as documented by EMS withdrawing from methamphetamine and opioids. Then he complained of shoulder pain. His last use of methamphetamine and practices was about 2 days ago. Patient is very constantly moving around anxious nervous and fed up with his life. There is a pink slip by police as documented suicidal ideation. Patient stated he has several ways for suicide but does not have one concrete plan. His mother had suicide when he was 13-year-old with the help of hairdresser electric cord. When evaluated by ED physician he said he does not have suicidal ideation or attempt. When I talked to the patient he says he feels better after the buprenorphine medication and he does not have suicidal ideation but he had at home. He states he wanted to have money and shoot high-dose of drugs as that will be painless . Patient also had vomiting several times today on the floor. He denies hallucination or seizure. Patient is feeling restless, muscle aches pain, difficult to sleep. He also complained of burning micturition in penis. He stated sometimes has yellowish discharge and feels like ejaculation. Patient also had multiple chronic superficial ulceration, some eschars and a scab from itching and shooting IV substances. No fever or chills. [facility] Medical History Abscess of forearm, left Abscess of forearm, right Anxiety Broken teeth COVID-19 Drug abuse and dependence GI bleed Hepatitis C History of intravenous drug abuse HIV (human immunodeficiency virus infection) Methamphetamine abuse Smoker Substance abuse Home Medications NK 12/28/22 [History Last Taken Unknown] Allergy/AdvReac Type Severity Reaction Status Date / Time No Known Allergies Allergy Verified 12/28/22 00:31 Family History Mother Hypertension Social History Smoking Status: Current every day smoker tobacco type: cigarettes ROS ROS Narrative Constitutional: Reports fatigue and weakness. No fever or chill. HEENT: Reports systems reviewed and no addt'l complaints, except as documented Respiratory/Chest: Denies chest pain, shortness of breath at rest or with exertion CVS: Alert denied chest pain and shortness of breath to EMS but he does not have. From withdrawal reaction. Gastrointestinal: Vomiting. No abdominal pain. Genitourinary: As described in HPI Musculoskeletal: Restless. Muscle and bone aches. Denies limited range of motion Neurologic: Denies seizure-like activity. No strokelike symptoms skin: Ulcer in his [place] described in HPI Endocrinology: Reports systems reviewed and no addt'l complaints, except as documented Hematologic/Lymphatic: Reports systems reviewed and no addt'l complaints, except as documented Rest 14 ROS are negative except as mentioned in HPI Vital Signs Vital Signs Vital Signs: 12/28/22 07:08 Temperature 96.5 F L Temperature Source Temporal Pulse Rate 96 Respiratory Rate 18 Blood Pressure 119/100 H Blood Pressure Mean 106 Pulse Ox 96 Oxygen Delivery Method Room Air Weight Weight: 145 lb Body Mass Index (BMI) 19.1 Physical Exam Narrative Physical exam General: Alert, Oriented x3, Cooperative HEENT: Atraumatic, PERRLA, EOMI, Normocephalic Oral: Oral mucosa moist. No Gingival or Mucosal Lesions/ Ulcerations Neck: Supple, No JVD, Negative Carotid Bruits Lungs: Air entry diminished in bilateral lung bases. No crepitation/rhonchi Cardiovascular: Regular rate, Regular Rhythm, Normal S1, Normal S2, No murmurs Abdomen: Bowel Sounds Present, Soft, Non Tender, Non-Distended : No penile discharge. No scrotal tenderness. No renal angle tenderness. No suprapubic tenderness. Extremities: No edema, Capillary Refill Less than 3 Seconds Skin: Superficial ulceration, Skins from IV needles and itching. IV needles tracking bro up to groin. Musculoskeletal: Mild muscle tenderness. ROM intact. Neurological: Cranial nerves II-XII grossly intact, DTR 2+/4 and Symmetrical, Neuro grossly intact Psych/Mental Status: Anxious, restless. Results Lab / Micro Data Labs: Laboratory Results - last 24 hr 12/28/22 07:53: Ur Drug Screen Comment Assessment & Plan Assessment/Plan (1) Opioid dependence: (2) Methamphetamine abuse: PLAN: Plan This is a 32-year-old gentleman with history of chronic opioid and methamphetamine use came for acute opioid withdrawal syndrome. 1. Acute opioid withdrawal syndrome with history of chronic IV fentanyl use dependence and tolerance: Patient is being admitted on MedSurg floor. The patient is started on buprenorphine along with other adjunctive medications as needed for medical stabilization as per order set of opioid withdrawal syndrome. CINA monitoring 2. Chronic smoking/IV methamphetamine use and dependence: Methamphetamine withdrawal symptoms does not have prolonged lasting. Patient had chest pain and shortness of breath at midnight any complaint EMS. He is much better and he does not have chest pain or shortness of breath. First troponin done in ED is negative. Second troponin ordered. 3. Dysuria, urethral discharge suspicion of gonorrhea and chlamydia STI/UTI: UA with urine culture ordered. PCR urethral swab for gonorrhea and chlamydia sent. Patient empirically given 500 mg IM ceftriaxone and started on doxycycline. 4. Multiple superficial ulcerations both upper extremities and scabs and multiple subcutaneous nodules/induration possible phlegmon/abscesses: It seems patient had MRSA skin infection from clinical exam or multiple coinfection. MRSA skin/wound swab. Empirically started on Augmentin and doxycycline. During previous admissions no 2020 patient had incision and drainage of bilateral arm abscesses by Dr. Fischer. It has healed. ID consult requested. 5. Psychiatric diagnosis: Patient has history of bipolar disorder and PTSD. He also had suicidal ideation to the police. At present time he denies suicidal ideation or attempt. 180 human resources assistant manager to evaluate. Will call crisis management to further evaluate. 6. Chronic cigarette smoking/nicotine use: And polysubstance use patient smokes a pack per day. On nicotine patch. 7. History of chronic hepatitis C, HIV: Patient is not treated. Nonadherence is the biggest problem. CODE STATUS: Full code. Patient is not in mental state to discuss about the CODE STATUS/advanced directive. Charges/Coding Visit Charges Inpatient E&M: 20258 Init Hosp L3
[2022-12-28 08:07] VITALS: BP 134/78; PULSE 104; RESP 18; TEMP 36.1; O2SAT 99
[2022-12-28 08:14] LABS: Amphetamine Urine VISTA POSITIVE (<1000 ng/mL); Barbiturate Urine VISTA NEGATIVE (< 200 ng/mL); Benzodiazepine Urine VISTA NEGATIVE (< 200 ng/mL); Cocaine Urine VISTA POSITIVE (< 300 ng/mL); Ecstacy Urine VISTA NEGATIVE (< 500 ng/mL); Methadone Urine VISTA NEGATIVE (< 300 ng/mL); PCP Urine VISTA NEGATIVE (< 25 ng/mL); THC Urine VISTA NEGATIVE (< 50 ng/mL); Vista UDS pH Range 7
[2022-12-28 08:40] LABS: Alcohol, Blood (Medical)-Serum < 3.0 mg/dL
--- NOTE | 2022-12-28 09:24 | NURSING ---
Patient ok with us talking with his aunt Ana Cristina Kilpatrick. she is his main pupil personnel services director since his grandpa . She is aware of patient here for [facility] program with no phone or visitors. Patient expressed to this nurse that he wants help and willing to go to rehab someplace if that is available to him.
[2022-12-28] MEDS: Pantoprazole Sodium 40 MG Tablet PO (09:35)
[2022-12-28] MEDS: Methocarbamol 750 MG Tablet 1500 MG PO (09:35)
[2022-12-28] MEDS: Buprenorphine HCl 2 MG TAB.SUBL SL ×2 (09:35→16:40)
[2022-12-28] MEDS: cloNIDine HCl 0.1 MG Tablet PO (09:35)
[2022-12-28 11:40] LABS: Troponin-I HS 4 pg/mL (3.0-78.0)
[2022-12-28] MEDS: Amox/Clavulanate 875 MG Tablet PO ×2 (11:43→20:16)
[2022-12-28] MEDS: BACITRACIN 15 GM Tube 1 APPLIC TOPICAL ×2 (11:43→20:16)
--- NOTE | 2022-12-28 13:08 | CASEMGMT ---
Social Work SW received MH consult to see pt and evaluate for SI. SW into pt room, introduced self and role at hospital. Pt agreeable to talking but presenting as uncomfortable, clear signs of withdrawal evidenced by increased sweating and restlessness. Pt moving frequently to attempt getting comfortable during discussion. SW observed bruising and scabs in various stages of healing covering large sections of the patients arms from IV use. SW inquired about mental health and thoughts of self harm or suicide. Pt denied thoughts of self harm and suicide. Pt stated I don't want to hurt myself, I just said that because I needed help and that makes people respond. If I wanted to hurt myself I wouldn't be asking for help. Pt also denied HI. SW inquired about history of substance use, drug of choice and triggers that contribute to use. Pt informed that had been in recovery from opioids for 10 years until 2 years ago when pt's grandfather , then relapsed on meth. SW inquired about coping skills and pt stated been in a program, I know what I need to do, it's just hard actually doing it. Pt agreeable to inpatient substance abuse treatment and to speaking with addiction therapist. SW informed [facility] life specialist would be in later this day to discuss options with pt. Pt voiced understanding. At this time SW does not feel pt has SI. Pt voiced reasons for living (his cat and some family members) and thoughts of future plans for recovery and sobriety. Pt will need MH evaluation once medically cleared. Sheri Powell, DB
[2022-12-28] MEDS: Doxycycline 100 MG CAPSULE PO ×2 (13:33→20:16)
[2022-12-28] MEDS: Ondansetron 8 MG Tablet PO (13:33)
[2022-12-28 13:34] LABS: M R Staph aureus DNA By PCR Negative (Negative); Probe Check PASS; Specimen Processing Control PASS; Staph aureus DNA By PCR POSITIVE (Negative)
[2022-12-28] MEDS: Ceftriaxone 500 MG Vial IM (13:34)
[2022-12-28 13:36] LABS: Chlamydia Trachomatis by PCR Negative (Negative); Neisserai gonorrhoeae by PCR Negative (Negative); Probe Check PASS; Sample Adequacy Control PASS; Specimen Processing Control PASS
[2022-12-28 14:14] LABS: Syphilis Antibodies Non-reactive
--- NOTE | 2022-12-28 14:53 | PCM.CONS.GEN ---
Assessment & Plan Assessment/Plan (1) Opioid dependence: (2) History of intravenous drug abuse: (3) HIV (human immunodeficiency virus infection): PLAN: urethritis - gonorrhea/chlamydia testing pending. Got IM ceftriaxone, now on doxy and augmentin. Has h/o syphillis, RPR in [facility] 1:2 on 09/2021. He does not recall any prior h/o syphilis or treatment. Has h/o MSM but denies sexual activity in past year. HIV - 09/2021 CD4 320, viral load almost 3 million. Took biktarvy for about a month after establishing with Dr. Heart with ID in [place]. Encouraged him to followup back with him or call my office for appt. Will check VL and CD4 here. IVDU with h/o skin abscess - no current skin infection seen n/v - will check LFT and lipase here. Lost 80 lbs in past year, not clear what is due to drug use, untreated hiv, or other issue. Will follow, thank you. (4) Hepatitis C: (5) Urethritis: HPI Consult Data Date of Consult: 12/28/22 HPI Narrative Reason for Consultation: hiv HPI Narrative: MEME CORNEJO, is a 32 M with IV meth and fentanyl use. Dx with HIV 09/2021, also h/o untreated hep C. H/o MSM, denies sharing needles. No sexual activity in past year. Last IVDU was 2-3 days ago. Reports purulent drainage from penis and urinary urgency. After HIV dx, established with Dr. Heart, took biktarvy for about a month. Issues with lack of transportation, money, or place to live. Admitted here with suicidal ideation, detox. Given ceftriaxone x1, now on doxy/augmentin. Has sores on arms, but no swelling/redness/drainage. Lost about 80lbs in past year. C/o n/v, night sweats, not feeling well. Full ROS performed and neg except as noted above. [facility] Medical History (Updated 12/28/22 @ 15:[address] Wes Ocasio MD) Abscess of forearm, left Abscess of forearm, right Anxiety Broken teeth COVID-19 Drug abuse and dependence GI bleed Hepatitis C History of intravenous drug abuse HIV (human immunodeficiency virus infection) Methamphetamine abuse Smoker Substance abuse Syphilis Home Medications NK 12/28/22 [History Last Taken Unknown] Allergy/AdvReac Type Severity Reaction Status Date / Time No Known Allergies Allergy Verified 12/28/22 00:31 Family History Mother Hypertension Social History Smoking Status: Current every day smoker tobacco type: cigarettes Physical Exam Const alert, oriented x3 and no apparent distress General Appearance: cooperative HEENT normocephalic and head/scalp atraumatic HEENT Narrative: No thrush Eyes PERRL and EOMs intact bilaterally Neck supple and No nodes Resp normal air movement and clear to auscultation bilaterally Cardio regular rate and regular rhythm GI soft to palpation, non-tender and non-distended Extremity General Extremity: Negative for edema Skin Skin Narrative: dry lesions on arms Neuro CN's II-XII intact bilaterally Lab / Micro Data Attestation: I reviewed the patient's lab results. Result Diagrams: 12/28/22 14:30 Labs: Laboratory Results - last 24 hr 12/28/22 07:53: Urine Opiates Screen POSITIVE H, Urine Methadone Screen NEGATIVE, Ur Barbiturates Screen NEGATIVE, Ur Phencyclidine Scrn NEGATIVE, Ur Amphetamines Screen POSITIVE H, MDMA (Ecstasy) Screen NEGATIVE, U Benzodiazepines Scrn NEGATIVE, Urine Cocaine Screen POSITIVE H, U Cannabinoids Screen NEGATIVE, Ur Drug Screen Comment 12/28/22 08:05: Ethyl Alcohol < 3.0 12/28/22 08:05: Syphilis Total Ab Non-reactive 12/28/22 11:05: Chlam trachomat DNA PCR Negative, N.gonorrhoeae DNA (PCR) Negative 12/28/22 11:10: Troponin I High Sens 4 12/28/22 11:50: S.aureus Protein A PCR POSITIVE H, MRSA (PCR) Negative
--- NOTE | 2022-12-28 15:12 | ADDICTION ---
TW met with pt to complete ASAM, AUDIT, DUDIT, MSE, COLETTE, and start D/C planning. Pt is willing to go to residential treatment and is interested in change. However, upon discussing with nursing staff, it is confirmed that pt has a warrant in [facility] and he will be discharged to the [facility]. TW is not going to confirm this with pt, and is going to encourage him to complete his detox. He will be notified upon d/c that he will be transported to the [facility]. Pt did fill out COLETTE for [facility] if warrant status changes and pt is still willing to go into treatment.
[2022-12-28 15:59] LABS: AST(SGOT) 24 U/L (15-37); Alanine Aminotransfer ALT/SGPT 15 U/L (16-61); Albumin, Serum 3.4 g/dL (3.2-5.0); Alkaline Phosphatase 157 U/L (45-117); Bilirubin, Direct 0.22 mg/dL (0.00-0.30); Globulin 5.8 g/dL (2.2-4.2); Lipase 144 U/L (73-393); Protein, Total 9.2 g/dL (6.4-8.2)
[2022-12-28 16:42] VITALS: BP 110/79; PULSE 61; RESP 16; TEMP 37; O2SAT 99
[2022-12-28] MEDS: Dicyclomine 10 MG Capsule 20 MG PO (16:50)
[2022-12-28] MEDS: Gabapentin 300 MG Capsule PO (16:50)
--- NOTE | 2022-12-28 17:15 | NURSING ---
updated community director again regarding HRO request to be notified if patients leaves stating warrants for arrest. aware pt had been pink slipped to [facility] by police. aware per [place] 180 navigator pt did disclose to her he is aware he has warrants and they want me Did discuss order for crisis evaluation when medically stable with [place]. Discussed DC planning as aware she will be unable to place pt in residential with the active warrants.
[2022-12-28 18:11] LABS: Bacteria 0 SEEN /hpf (None Seen); Mucous, Urine 0 SEEN /hpf (<or=2+); Red Blood Cells-Urine 0 SEEN /hpf (0-5); Squamous Epithelial Cells - UA 0 SEEN /hpf (0-5)
[2022-12-28 18:12] LABS: Color, Urine Yellow (Yellow); Glucose, Dipstick Normal (Normal); Ketone-Dipstick 15 mg/dl (Negative); Leukocyte Esterase-Dipstick 25 /ul (Negative); Nitrite-Dipstick Negative (Negative); Occult Blood-Urine Negative /ul (Negative); Protein-Dipstick 15 mg/dl (Negative); Urine Bilirubin Dipstick Negative (Negative); Urine Clarity Sl. Cloudy (Clear); Urine Urobilinogen 1 mg/dl (Normal)
[2022-12-28 18:18] LABS: White Blood Cells 0-5 SEEN /hpf (0-5)
[2022-12-28 20:01] VITALS: BP 106/74; PULSE 62; RESP 16; TEMP 37.1; O2SAT 99
[2022-12-28] MEDS: traZODone 100 MG Tablet PO (20:16)
[2022-12-29 02:14] VITALS: BP 114/70; PULSE 74; RESP 16; TEMP 36.7; O2SAT 98
[2022-12-29] MEDS: Ondansetron 8 MG Tablet PO ×2 (02:20→21:27)
[2022-12-29] MEDS: hydrOXYzine PAM 25 MG Capsule 50 MG PO (02:20)
[2022-12-29] MEDS: Methocarbamol 750 MG Tablet 1500 MG PO ×2 (02:21→21:26)
[2022-12-29] MEDS: Buprenorphine HCl 2 MG TAB.SUBL SL ×3 (02:21→17:46)
[2022-12-29] MEDS: Senna Tablet 2 TABLET PO (02:21)
[2022-12-29 08:00] VITALS: BP 102/69; PULSE 73; RESP 15; TEMP 36.7; O2SAT 96
[2022-12-29] MEDS: Amox/Clavulanate 875 MG Tablet PO ×2 (09:23→21:26)
[2022-12-29] MEDS: Pantoprazole Sodium 40 MG Tablet PO (09:23)
[2022-12-29] MEDS: Doxycycline 100 MG CAPSULE PO ×2 (09:23→21:26)
[2022-12-29] MEDS: BACITRACIN 15 GM Tube 1 APPLIC TOPICAL ×2 (09:25→21:27)
--- NOTE | 2022-12-29 09:41 | PN.HOSP_ITS ---
Reason for Visit Reason for Visit: Diagnoses Unspecified viral hepatitis C without hepatic coma (12/28/22) Human immunodeficiency virus [HIV] disease (12/28/22) Opioid dependence, uncomplicated (12/28/22) Other stimulant abuse, uncomplicated (12/28/22) Other psychoactive substance abuse, in remission (12/28/22) Other urethritis (12/28/22) Subjective Subjective Follow-up for acute opioid withdrawal with history of polysubstance use, STI, HIV multiple skin nodules and history of skin abscesses. Objective Data Objective Data Vital Signs: Vital Signs Temp Pulse Resp BP Pulse Ox O2 Del Method 98.0 F 74 16 114/70 98 Room Air 12/29/22 02:14 12/29/22 02:14 12/29/22 02:14 12/29/22 02:14 12/29/22 02:14 12/29/22 02:14 Oxygen Delivery Method Room Air Weight: 145 lb Body Mass Index (BMI) 19.1 Intake & Output: Intake and Output for Last 24 Hours 12/27/22 12/28/22 12/29/22 23:59 23:59 23:59 Output Total 200 / 200 200 / 200 Balance -200 / -200 -200 / -200 Lab / Micro Data Result Diagrams: 12/28/22 14:30 Labs: Laboratory Results - last 24 hr 12/28/22 08:05: Syphilis Total Ab Non-reactive 12/28/22 11:05: Chlam trachomat DNA PCR Negative, N.gonorrhoeae DNA (PCR) Negative 12/28/22 11:10: Troponin I High Sens 4 12/28/22 11:10: Total Bilirubin 1.00, Direct Bilirubin 0.22, AST 24, ALT 15 L, Alkaline Phosphatase 157 H, Total Protein 9.2 H, Albumin 3.4, Globulin 5.8 H, Lipase 144 12/28/22 11:50: S.aureus Protein A PCR POSITIVE H, MRSA (PCR) Negative 12/28/22 16:10: Urine Color Yellow, Urine Clarity Sl. Cloudy, Urine pH 8.0, Ur Specific [place] 1.010, Urine Protein 15 H, Urine Glucose (UA) Normal, Urine Ketones 15 H, Urine Occult Blood Negative, Urine Nitrite Negative, Urine Bilirubin Negative, Urine Urobilinogen 1 H, Ur Leukocyte Esterase 25 H, Urine RBC 0 SEEN, Urine WBC 0-5 SEEN, Ur Squamous Epith Cells 0 SEEN, Urine Bacteria 0 SEEN, Urine Mucus 0 SEEN Physical Exam Narrative Overall patient feels better with medication. Patient did not had nightmare, hallucination delusion or suicidal thoughts. No seizure. Physical exam General: Alert, Oriented x3, Cooperative HEENT: Atraumatic, PERRLA, EOMI, Normocephalic Oral: Oral mucosa moist. No Gingival or Mucosal Lesions/ Ulcerations Neck: Supple, No JVD, Negative Carotid Bruits Lungs: Air entry diminished in bilateral lung bases. No crepitation/rhonchi Cardiovascular: Regular rate, Regular Rhythm, Normal S1, Normal S2, No murmurs Abdomen: Bowel Sounds Present, Soft, Non Tender, Non-Distended : No penile discharge. No scrotal tenderness. No renal angle tenderness. No suprapubic tenderness. Extremities: No edema, Capillary Refill Less than 3 Seconds Skin: Superficial ulceration and scars, Skins tracks from IV needles and itching. IV needles tracking bro up to groin. Multiple skin nodules in upper and lower extremities. Musculoskeletal: Mild muscle tenderness. ROM intact. Neurological: Cranial nerves II-XII grossly intact, DTR 2+/4 and Symmetrical, Neuro grossly intact Psych/Mental Status: Anxious, restless. Assessment & Plan Assessment/Plan (1) Opioid dependence: (2) Methamphetamine abuse: PLAN: Plan This is a 32-year-old gentleman with history of chronic opioid and methamphe tamine use came for acute opioid withdrawal syndrome. 1. Acute opioid withdrawal syndrome with history of chronic IV fentanyl use dependence and tolerance: Patient is being admitted on MedSurg floor. The patient is started on buprenorphine along with other adjunctive medications as needed for medical stabilization as per order set of opioid withdrawal syndrome. CINA monitoring 12/29: Patient overall doing better. No acute issues. CINA score 0. No nausea or vomiting. 2. Chronic smoking/IV methamphetamine use and dependence: Methamphetamine withdrawal symptoms does not have prolonged lasting. Patient had chest pain and shortness of breath at midnight any complaint EMS. He is much better and he does not have chest pain or shortness of breath. First troponin done in ED is negative. Second troponin also negative. ACS ruled out. 3. Dysuria, urethral discharge suspicion of gonorrhea and chlamydia STI: UA with urine culture ordered. PCR urethral swab for gonorrhea and chlamydia sent. Patient empirically given 500 mg IM ceftriaxone and started on doxycycline. 12/29: PCR for gonorrhea and chlamydia came negative. UA nitrite negative, LE 25 WBC 0-5 cells. Does not seem patient has UTI. Urine culture pending. CD4 320 and viral almost 3 million in September 2021. Patient took Biktarvy for about a month last dose in October 25, 2020. Patient used to follow Dr. Heart with ID in [place] and he lives in [place]. History of syphilis, RPR in [facility] 1:2 on September 2021. Syphilis total antibody antibody nonreactive. HIV viral load and CD4 pending. Patient does not recall having prior treatment of syphilis or hep C. History of MSM. But no sexual activity in last 1 year. Continue Augmentin and doxycycline. 4. Multiple superficial ulcerations both upper extremities and scabs and multiple subcutaneous nodules/induration possible phlegmon/abscesses: It seems patient had MRSA skin infection from clinical exam or multiple coinfection. MRSA skin/wound swab. Empirically started on Augmentin and doxycycline. During previous admissions no 2020 patient had incision and drainage of bilateral arm abscesses by Dr. Fischer. It has healed. 12/29: Patient was seen by ID yesterday. Patient has mild nausea and vomiting. Liver chemistry shows ALT low, AST normal. ALP 157. Albumin 3.4, globulin 5.8. Lipase normal. 5. Psychiatric diagnosis: Patient has history of bipolar disorder and PTSD. He also had suicidal ideation to the police. At present time he denies suicidal ideation or attempt. 180 social media campaign manager to evaluate. Will call crisis management to further evaluate. 6. Chronic cigarette smoking/nicotine use: And polysubstance use patient smokes a pack per day. On nicotine patch. 7. History of chronic hepatitis C, HIV: Patient is not treated. Nonadherence is the biggest problem. CODE STATUS: Full code. Patient is not in mental state to discuss about the CODE STATUS/advanced directive. Total time of the visit including total time spent in counseling or coordination of care, (more than 50% of the total time, spent in obtaining medical information from nurses and other ancillary care providers,explaining to the patient about labs, imaging, diagnosis and management of active complex medical conditions), discussion with ID, medical record review, dealing with multiple STI, HIV review of labs and imaging is 50 minutes. Charges/Coding Visit Charges Inpatient E&M: 04383 Subs Hosp L3
[2022-12-29 15:00] VITALS: BP 108/74; PULSE 82; RESP 16; TEMP 36.8; O2SAT 99
[2022-12-29 21:12] VITALS: BP 106/78; PULSE 74; RESP 16; TEMP 37.3; O2SAT 97
[2022-12-29] MEDS: Gabapentin 300 MG Capsule PO (21:26)
[2022-12-29] MEDS: cloNIDine HCl 0.1 MG Tablet PO (21:26)
[2022-12-29] MEDS: traZODone 100 MG Tablet PO (21:26)
[2022-12-29] MEDS: Dicyclomine 10 MG Capsule 20 MG PO (21:27)
[2022-12-30] MEDS: Buprenorphine HCl 2 MG TAB.SUBL SL ×2 (03:21→09:45)
[2022-12-30 03:23] VITALS: BP 104/69; PULSE 76; RESP 18; TEMP 36.4; O2SAT 98
[2022-12-30 08:00] VITALS: BMI 19.2
[2022-12-30 08:07] VITALS: BP 105/71; PULSE 75; RESP 16; TEMP 36.6; O2SAT 98
--- NOTE | 2022-12-30 08:20 | PCM.PN.HOSP ---
Reason for Visit Reason for Visit: Diagnoses Unspecified viral hepatitis C without hepatic coma (12/28/22) Human immunodeficiency virus [HIV] disease (12/28/22) Opioid dependence, uncomplicated (12/28/22) Other stimulant abuse, uncomplicated (12/28/22) Other psychoactive substance abuse, in remission (12/28/22) Other urethritis (12/28/22) Subjective Subjective Follow-up for acute opioid withdrawal syndrome and multiple STI/infection Objective Data Objective Data Vital Signs: Vital Signs Temp Pulse Resp BP Pulse Ox O2 Del Method 97.9 F 75 16 105/71 98 Room Air 12/30/22 08:07 12/30/22 08:07 12/30/22 08:07 12/30/22 08:07 12/30/22 08:07 12/30/22 08:07 Oxygen Delivery Method Room Air Weight: 145 lb Body Mass Index (BMI) 19.1 Intake & Output: Intake and Output for Last 24 Hours 12/28/22 12/29/22 12/31/22 23:59 23:59 00:59 Intake Total 700 / 700 Output Total 200 / 200 200 / 200 400 / 400 Balance -200 / -200 -200 / -200 300 / 300 Lab / Micro Data Result Diagrams: 12/28/22 14:30 Physical Exam Narrative Overall patient feels better with medication. He is eating breakfast. Patient did not had nightmare, hallucination delusion or suicidal thoughts. No seizure. Physical exam General: Alert, Oriented x3, Cooperative HEENT: Atraumatic, PERRLA, EOMI, Normocephalic Oral: Oral mucosa moist. No Gingival or Mucosal Lesions/ Ulcerations Neck: Supple, No JVD, Negative Carotid Bruits Lungs: Air entry diminished in bilateral lung bases. No crepitation/rhonchi Cardiovascular: Regular rate, Regular Rhythm, Normal S1, Normal S2, No murmurs Abdomen: Bowel Sounds Present, Soft, Non Tender, Non-Distended : No penile discharge. No scrotal tenderness. No renal angle tenderness. No suprapubic tenderness. Extremities: No edema, Capillary Refill Less than 3 Seconds Skin: Superficial ulceration healing. Multiple scars and skins tracks from IV needles. Multiple skin nodules in upper and lower extremities. Musculoskeletal: Muscle tenderness resolved. ROM intact. Neurological: Cranial nerves II-XII grossly intact, DTR 2+/4 and Symmetrical, Neuro grossly intact Psych/Mental Status: Anxious, restless. Assessment & Plan Assessment/Plan (1) Opioid dependence: (2) Methamphetamine abuse: PLAN: Plan This is a 32-year-old gentleman with history of chronic opioid and methamphetamine use came for acute opioid withdrawal syndrome. 1. Acute opioid withdrawal syndrome with history of chronic IV fentanyl use dependence and tolerance: Patient is being admitted on MedSurg floor. The patient is started on buprenorphine along with other adjunctive medications as needed for medical stabilization as per order set of opioid withdrawal syndrome. CINA monitoring 12/29: Patient overall doing better. No acute issues. CINA score 0. 12/30: Nausea and vomiting is better. Had vomiting yesterday. Still mild loss of appetite but patient can eat. 2. Chronic smoking/IV methamphetamine use and dependence: Methamphetamine withdrawal symptoms does not have prolonged lasting. Patient had chest pain and shortness of breath at midnight any complaint EMS. He is much better and he does not have chest pain or shortness of breath. First troponin done in ED is negative. Second troponin also negative. ACS ruled out. 3. STI with history of possible syphilis, HIV and chronic hepatitis C: UA with urine culture ordered. PCR urethral swab for gonorrhea and chlamydia sent. Patient empirically given 500 mg IM ceftriaxone and started on doxycycline. Patient is not treated for chronic hepatitis C. Nonadherence is the biggest problem. 12/29: PCR for gonorrhea and chlamydia came negative. UA nitrite negative, LE 25 WBC 0-5 cells. Does not seem patient has UTI. Urine culture pending. CD4 320 and viral almost 3 million in September 2021. Patient took Biktarvy for about a month last dose in October 25, 2020. Patient used to follow Dr. Heart with ID in [place] and he lives in [place]. History of syphilis, RPR in [facility] 1:2 on September 2021. Syphilis total antibody antibody nonreactive. HIV viral load and CD4 pending. Patient does not recall having prior treatment of syphilis or hep C. History of MSM. But no sexual activity in last 1 year. Continue Augmentin and doxycycline. 4. Multiple superficial ulcerations both upper extremities and scabs and multiple subcutaneous nodules/induration possible phlegmon/abscesses: It seems patient had MRSA skin infection from clinical exam or multiple coinfection. MRSA skin/wound swab. Empirically started on Augmentin and doxycycline. During previous admissions no 2020 patient had incision and drainage of bilateral arm abscesses by Dr. Fischer. It has healed. 12/29: Patient was seen by ID yesterday. Patient has mild nausea and vomiting. Liver chemistry shows ALT low, AST normal. ALP 157. Albumin 3.4, globulin 5.8. Lipase normal. 5. Psychiatric diagnosis: Patient has history of bipolar disorder and PTSD. He also had suicidal ideation to the police. At present time he denies suicidal ideation or attempt. 180 global engineering manager to evaluate. Will call crisis management to further evaluate. 6. Chronic cigarette smoking/nicotine use: And polysubstance use patient smokes a pack per day. On nicotine patch. 7. History of chronic hepatitis C, HIV: CODE STATUS: Full code. Patient is not in mental state to discuss about the CODE STATUS/advanced directive. Total time of the visit including total time spent in counseling or coordination of care, (more than 50% of the total time, spent in obtaining medical information from nurses and other ancillary care providers,explaining to the patient about labs, imaging, diagnosis and management of active complex medical conditions), discussion with ID, medical record review, dealing with multiple STI, HIV review of labs and imaging is 50 minutes. Charges/Coding Visit Charges Inpatient E&M: 84302 Subs Hosp L2
[2022-12-30] MEDS: BACITRACIN 15 GM Tube 1 APPLIC TOPICAL (09:44)
[2022-12-30] MEDS: Amox/Clavulanate 875 MG Tablet PO (09:46)
[2022-12-30] MEDS: Pantoprazole Sodium 40 MG Tablet PO (09:46)
[2022-12-30] MEDS: Doxycycline 100 MG CAPSULE PO (09:46)
[2022-12-30 14:23] VITALS: BP 110/70; PULSE 81; RESP 16; TEMP 36.6; O2SAT 99
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
--- NOTE | 2022-12-30 21:11 | PN.HOSP_ITS ---
Hospitalist Note Notifed per staffing associate that patient left AMA 12/30/22 at ~ 20:30.
--- NOTE | 2022-12-30 21:11 | PCM.HOSP.N ---
Hospitalist Note Notifed per event staff member that patient left AMA 12/30/22 at ~ 20:30.
== END 2022-12-30 20:30 | disposition left against medical advice (07) | DRG 770 ==
LOC: ED 08:05 → MS3 08:13
PROVIDERS: Internal Medicine Infectious Disease; Admitting Provider Internal Medicine; Emergency Provider Emergency Medicine; Visit Provider Internal Medicine
DX: F11.23 Opioid dependence with withdrawal (principal); R45.851 Suicidal ideations; B18.2 Chronic viral hepatitis C; F31.9 Bipolar disorder, unspecified; Z21 Asymptomatic human immunodeficiency virus [HIV] infection status; F15.20 Other stimulant dependence, uncomplicated; F17.210 Nicotine dependence, cigarettes, uncomplicated; S46.912A Strain of unspecified muscle, fascia and tendon at shoulder and upper arm level, left arm, initial encounter; F43.10 Post-traumatic stress disorder, unspecified; X58.XXXA Exposure to other specified factors, initial encounter; N34.2 Other urethritis; Z91.14 Patient's other noncompliance with medication regimen; Z86.16 Personal history of COVID-19; Z53.29 Procedure and treatment not carried out because of patient's decision for other reasons; Z81.8 Family history of other mental and behavioral disorders
CPT/HCPCS: 36415; 71045; 73030; 80048; 80076; 80307; 81001; 82077; 83690; 84484; 85025; 86361; 86780; 87086; 87491; 87536; 87591; 87640; 93005; 99283; 99285; J7030; A4216